=== PATIENT | female | born 1940 | race Caucasian/White ===

== ENCOUNTER 2016-09-18 20:48 | Inpatient (IN) | payer OTHER ==
[~2016-09-18] VITALS: Ht 152.4 cm; Wt 78.4 kg
--- NOTE | 2016-09-18 21:44 | DIAGNOSTIC IMAGING REPORT ---
PROCEDURE: XR CHEST 2 VIEW INDICATION: SHORTNESS OF BREATH TECHNIQUE: PA and lateral views. COMPARISON: None. FINDINGS: There are moderate to severe parenchymal changes in the right lung with mild changes at the left lung base. Heart and mediastinum are normal. Mild dextroscoliosis of the thoracic spine. Postoperative changes and fusion of the lumbar spine (partially visualized). IMPRESSION: 1. Moderate to marked parenchymal changes in the right lung with mild changes at the left lung base. Findings are compatible with pneumonia (e.g., aspiration , bacterial, Mycoplasma).
--- NOTE | 2016-09-18 22:01 | ED NURSING NOTES ---
Clinical Report - [facility] [address] [place] [address] 09/18/2016 20:50 Patient: NARAYAN NUÑEZ TRIAGE Triage time 20:58 Sep 18 2016. Acuity: LEVEL 4. Chief Complaint: (sore on right lower leg). 21:05 09/18/16. SEPSIS SCREEN: Sepsis Screen. Negative (no infection suspected/documented). BRIANNA COMA SCORE: Brianna Coma Scale: 15- eyes open spontaneously (4); best verbal response- oriented x 4 (5); best motor response- obeys commands (6). --21:05 Tracy Mcqueen R.N. 20:58 09/18/16. BP: 120/58. HR: 93. RR: 18. O2 saturation: 85%. Temp: 98.5 F. Pain level now: 01/26. --21:05 Tracy Mcqueen R.N. Weight: 69.3 kg stated. Height/Length: 60 inches Per Patient. BMI: 29.8. --20:57 Tracy Mcqueen R.Hosea. Medications Insulin. --21:03 Tracy Mcqueen R.N. Percocet Oral. --21:04 Tracy Mcqueen R.N. Medication/allergy information source: the patient. --21:05 Tracy Mcqueen RVickiN. Allergies Ibuprofen. --21:00 Tracy Mcqueen R.N. Penicillin. --21:00 Tracy Mcqueen R.N. History Arrived by private vehicle. Historian: patient. Accompanied by family. This started yesterday. ( states pain started last night in right lower leg laterally. there is a soft elevated area observed, skin is not open). She has had a cough and chills. No fever or weakness. Treatment FIRST ASSISTANT: None. SOCIAL HX: Never smoker. No alcohol use or drug use. No infectious disease exposure. ABUSE ASSESSMENT: No report of abuse. SELF HARM ASSESSMENT: A self harm assessment was performed. The patient answered "no" to the question "Have you recently felt down, depressed, or hopeless?", "Have you noticed less interest or pleasure in doing things?", "Do you have thoughts of harming or killing yourself?", "Are you here because you tried to hurt yourself?", "Have you ever tried to hurt yourself before today?", "Have you recently had thoughts about harming or killing others?" and "Do you have any dangerous items in your possession?". NUTRITIONAL RISK ASSESSMENT: The nutritional risk assessment revealed no deficiencies. FUNCTIONAL ASSESSMENT: Functional assessment: no impairments noted. LEARNING NEEDS ASSESSMENT: The learning needs assessment revealed no barriers. SKIN INTEGRITY ASSESSMENT: Skin integrity risk assessment completed. No skin integrity risk identified. --21:05 Tracy Mcqueen R.N. PROBLEMS: Arthritis. Chronic Back Pain. Diabetes Mellitus. --21:01 Tracy Mcqueen R.N. ADDITIONAL SURGERIES: Back Surgery. Cholecystectomy. --21:01 Tracy Mcqueen R.N. Interventions ID band on patient. --21:05 Tracy Mcqueen R.N. PHYSICAL ASSESSMENT 21:09/18/16. To room via wheelchair. GENERAL / NEURO / PSYCH: Alert. Oriented X 4. Appears in no acute distress. HEENT: Pupils equal, round and reactive to light. No facial asymmetry noted. Mucous membranes are pink. RESPIRATORY: Decreased breath sounds. Crackles present. CVS: Capillary refill less than 2 seconds. Pulses within normal limits. EXTREMITIES: Bilateral 1+ pitting edema of the lower extremities involving both lower legs. SKIN: Skin intact. Skin is warm and dry. Normal skin turgor. --21:26 Tracy Mcqueen R.N. NURSING PROGRESS NOTES 21:06 09/18/16. The initial plan of care for this patient includes an assessment with efforts to address the presence of pain; impairment of the respiratory and integumentary system. This plan of care was discussed with the patient. Oxygen administered at 2 liters. Patient gowned. Reassurance given. Patient identifiers checked. Call light placed in reach. Side rails up x 2. Bed placed in lowest position. Brakes of bed on. Patient ready for evaluation. --21:06 Tracy Mcqueen R.N. 21:07 09/18/16. --21:07 Tracy Mcqueen R.N. 21:06 09/18/16. O2 saturation: 94% on nasal cannula at 2 liters/minute. --21:07 Tracy Mcqueen R.N. 21:20 09/18/2016 Site #1 started via IV in the right antecubital space with an 20g angiocath, with aseptic technique and good blood return; one attempt. Blood drawn: rainbow set. Labeled in the presence of the patient and sent to the lab. Saline lock flushed with 10 mL saline. --21:27 Tracy Mcqueen R.N. 21:23 09/18/16. Patient transported to radiology by stretcher with O2. --21:27 Tracy Mcqueen R.N. 21:33 09/18/2016 NITROGLYCERIN PASTE Topical Paste 1.5 inch. Applied to the right upper arm. Allergies verified and confirmed 5 rights. --21:38 Tracy Mcqueen R.N. EKG time: (2139). EKG was ordered, performed by a tech and shown to the ED physician. --21:42 Tolu Mensah, ER Soda Clerk 21:46 09/18/16. BP: 118/53. HR: 92. RR: 20. O2 saturation: 94%. Pain level now 5/10. --21:46 Tracy Mcqueen R.N. 21:46 09/18/16. Cardiac rhythm: normal sinus rhythm. The patient is calm and resting quietly. --21:46 Tracy Mcqueen R.N. 22:10 09/18/2016 Lasix IVP 20 mg given over 1 minute(s) via site #1. Allergies verified and confirmed 5 rights. IV patency established. IV site checked: no pain, redness, or swelling. IV flushed thoroughly pre- and post-medication administration. IVP given by RN. --22:15 Tracy Mcqueen R.N. 22:15 09/18/2016 Started 500 mg of Azithromycin IVPB in bag #1 250 mL; at 250 mL/hr over 1 hour(s) via site #1 via IV pump. Allergies verified and confirmed 5 rights. IV patency established. IV site checked: no pain, redness, or swelling. IV flushed thoroughly pre- and post-medication administration. --22:16 Tracy Mcqueen R.N. 22:39 09/18/2016 Lovenox (Enoxaparin Sodium) Subcutaneous 60 mg given. Given in the right abdomen. Allergies verified and confirmed 5 rights. --22:39 Tracy Mcqueen R.N. 22:40 09/18/2016 Hydrocodone-APAP (Hydrocodone-Acetaminophen) PO 5/325 mg Tablets 1 tab given. Allergies verified, confirmed 5 rights and sedative warning given to the patient. --22:40 Tracy Mcqueen R.N. 22:40 09/18/2016 Zofran (Ondansetron HCl) IVP 4 mg given over 1 minute(s) via site #1. Allergies verified and confirmed 5 rights. IV patency established. IV site checked: no pain, redness, or swelling. IV flushed thoroughly pre- and post-medication administration. IVP given by RN. --22:40 Tracy Mcqueen R.N. 22:40 09/18/2016 Lovenox Subcutaneous Response: (dosing verified by Marciano Craft RN). --22:50 Tracy Mcqueen R.N. 23:15 09/18/2016 Azithromycin IVPB Discontinued: completed. Total amount infused: 250 mL. IV patency established. IV site checked: no pain, redness, or swelling. IV flushed thoroughly. --23:26 Tracy Mcqueen R.N. 23:20 09/18/16. Patient transported to NM by stretcher. --23:25 Tracy Mcqueen R.N. 23:48 09/18/2016 Started 2 gm of Ceftriaxone IVPB in bag #1 50 mL; at 100 mL/hr over 30 minute(s) via site #1 --23:48 Tracy Mcqueen R.N. 23:49 09/18/16. Cardiac rhythm: normal sinus rhythm. The patient is calm and resting quietly. ( Ultrasound at bedside). --23:49 Tracy Mcqueen, R.N. 23:49 09/18/16. BP: 117/49. HR: 98. RR: 18. O2 saturation: 94%. Temp: 98.3 F. Pain level now 5/10. --23:49 Tracy Mcqueen, R.N. Intake & Output 22:00 09/18/16. Urine, with return of 250 mL urine. --22:42 Tracy Mcqueen R.N. 22:44 09/18/16. Urine, with return of 200 mL urine. --22:44 Tracy Mcqueen R.N. DISPOSITION / DISCHARGE 22:45 09/18/16. Cardiac rhythm: normal sinus rhythm. --22:45 Tracy Mcqueen R.N. 22:45 09/18/16. BP: 118/63. HR: 97. RR: 22. O2 saturation: 93%. Pain level now 5/10. --22:45 RavierTracy herzog, R.N. Condition at departure: improved and stable. The goals identified in the patient's plan of care were met. Admitted to Acute Care. Report was given to a nurse via a phone call. Report included patient's care, treatment, medications, reviewed medication reconcilliation, and condition (including any recent changes or anticipated changes). All questions were answered. (to LUIS FELIPE Nieves). Bed requested (303). --23:34 Tracy Mcqueen R.N. 00:04 09/19/2016 Site #[address] upon admission; patent. --00:04 Tracy Mcqueen R.N. 00:04 09/19/2016 Ceftriaxone IVPB Continued: at the rate of 100 mL/hr. 25 mL remaining. IV patency established. IV site checked: no pain, redness, or swelling. IV flushed thoroughly. --00:04 Tracy Mcqueen R.N. Departure time: 00:Sep 19 2016. Transported via stretcher with O2. --00:05 Tracy Mcqueen R.N. Locked/Released at 09/19/2016 0:08 by Tracy Mcqueen R.N.
--- NOTE | 2016-09-18 22:01 | ED CLINICAL REPORT ---
Clinical Report - Physicians/Mid Levels [facility] [address] [place] [address] 09/18/2016 20:50 Patient: NARAYAN NUÑEZ Time Seen: 20:56. Arrived- By private vehicle. Historian- patient. HISTORY OF PRESENT ILLNESS Chief Complaint: TENDER AREA and (swelling in both legs). This started yesterday and is still present. It was gradual in onset and has been constant. It is described as mildly painful (right lower leg). It has been located on the right lower extremity. No cause has been identified. (She is noting increased swelling of both lower extremities). Similar symptoms previously: None. Recent medical care: Not recently seen/assessed. REVIEW OF SYSTEMS The patient has had fever, chills and joint pain. No sore throat, hoarseness, headache, chest pain or abdominal pain. No difficulty with urination or vomiting. She has had a mild nonproductive cough. No blood tinged sputum or frankly bloody sputum. She has had mild difficulty breathing at rest . The patient has also had orthopnea. All systems otherwise negative, except as recorded above. PAST HISTORY See nurses notes. Diabetes mellitus. PCP: [facility] clinic. Arthritis. Chronic back pain. Surgeries: Back surgery. Cholecystectomy. Medications: Percocet Oral. Insulin. Allergies: Ibuprofen. Penicillin. SOCIAL HISTORY Never smoker. No alcohol use or drug use. Residence: [facility]. ADDITIONAL NOTES The nursing notes have been reviewed. PHYSICAL EXAM Vital Signs: 09/18/2016 20:58 BP: 120/58. HR: 93. RR: 18. O2 saturation: 85%. Temp: 98.5 F. Pain level now: 8/10. Appearance: Alert. Oriented X3. Patient in mild distress. Eyes: Conjunctivae and eyelids normal. ENT: Pharynx normal. No nasal discharge, pharyngeal erythema or swelling or tonsillar exudate. Neck: Neck supple. CVS: Normal heart rate and rhythm. Heart sounds normal. Respiratory: No respiratory distress. Wheezing present. Rales present. Abdomen: Nontender. No organomegaly. Skin: Skin warm and dry. Normal skin color. Normal skin turgor. No erythema. No tender indurated area. No cellulitis. No abscess. Extremities: Bilateral 3+ edema of the lower extremities. No calf tenderness. (small area of increased tissue fluid accumulation right anterior,inferior leg - no erythema, no lymphangitis, no increased warmth). Neuro: Oriented X 3. No motor deficit. No sensory deficit. LABS, X-RAYS, AND EKG EKG: EKG time: (21:40). Normal sinus rhythm. Rate: 90. Normal P waves. Normal PALAK. Normal QRS complex. Normal axis. Normal ST and T waves. The study has been interpreted contemporaneously by me. The EKG appears to be a good tracing. Rhythm Strip #1: Normal sinus rhythm. Regular rhythm. Narrow QRS complexes. No ectopy. Chest X-ray: (FINDINGS: There are moderate to severe parenchymal changes in the right lung with mild changes at the left lung base. Heart and mediastinum are normal. Mild dextroscoliosis of the thoracic spine. Postoperative changes and fusion of the lumbar spine (partially visualized). IMPRESSION: 1. Moderate to marked parenchymal changes in the right lung with mild changes at the left lung base. Findings are compatible with pneumonia (e.g., aspiration, bacterial, Mycoplasma).). Views: PA and lateral. Technique: good. The X-rays were interpreted contemporaneously by me. The X-rays were discussed with the radiologist (via PACS note). CTA Pulmonary Arteries: No evidence of pulmonary embolism. IMPRESSION: 1. Moderate to severe alveolar changes (right greater than left) with mild mediastinal adenopathy. Findings are compatible with a pneumonic process. Consider infectious etiologies (e.g., bacterial, aspiration, Mycoplasma, viral). Alternatively, allergic pneumonitis or idiopathic causes (e.g., alveolar proteinosis, atypical sarcoid) should also be considered. Neoplastic causes (e.g., alveolar cell carcinoma) might also be considered. 2. Mild mediastinal adenopathy. 3. Small bilateral pleural effusions. Consider low protein state or occult heart failure. 4. No evidence of pulmonary embolus. The CTA was performed with contrast. The study was independently viewed by me and interpreted by the radiologist. The study was discussed with the radiologist (via PACS note). Lower Extremity Sonography: Negative exam. Negative study. Indication for study: extremity pain and swelling. The exam was performed by a battery service technician. The study was independently viewed by me, interpreted by the radiologist and discussed with the radiologist. IMPRESSION: 1. Negative venous ultrasound of the bilateral lower extremities. Laboratory Tests: UA-Culture if indicated: (EVARISTO: 09/18/2016 22:00) ( MsgRcvd 09/18/2016 22:07) Final results Test Result Flag Units (Reference) URINE COLOR YELLOW URINE APPEARANCE CLEAR URINE GLUCOSE 1+ (NEGATIVE) URINE BILIRUBIN NEGATIVE (NEGATIVE) URINE KETONE NEGATIVE (NEGATIVE) URINE SPECIFIC GRAVITY <= 1.005 L (1.010-1.030) URINE PH 6.0 (5.0-8.0) URINE PROTEIN NEGATIVE (NEGATIVE) URINE UROBILINOGEN 1.0 EU/dL (0.2-1.0) URINE NITRITE NEGATIVE (NEGATIVE) URINE BLOOD NEGATIVE (NEGATIVE) URINE LEUK ESTERASE NEGATIVE (NEGATIVE) URINE RBC 0-1 rbc/hpf (0-1) URINE WBC 0-1 wbc/hpf (0-1) URINE EPITHELIAL CELLS 0-1 EPI/hpf (0-5) URINE BACTERIA NONE SEEN (NONE SEEN) URINE COMMENT CULT NOT INDICATED URINE CULTURES ARE SET-UP BASED ON THE FOLLOWING CRITERIA:POSITIVE NITRITEPOSITIVE LEUKOCYTE ESTERASEGREATER THAN 10 WHITE BLOOD CELLSMODERATE (2+) OR GREATER BACTERIA CBC w Diff: (EVARISTO: 09/18/2016 21:20) ( MsgRcvd 09/18/2016 21:33) Final results Test Result Flag Units (Reference) WHITE BLOOD COUNT 13.7 H K/uL (4.5-11.5) RED BLOOD COUNT 4.14 M/uL (4.00-5.20) HEMOGLOBIN 11.9 L gm/dL (12.0-16.0) HEMATOCRIT 35.5 L % (36.0-46.0) MEAN CELL VOLUME 86 fL (80-100) MEAN CORPUSCULAR HGB 29 pg (26-34) MEAN CORPUSCULAR HGB CONC 34 g/dL (31-37) RED CELL DISTRIBUTION WIDTH 13.6 % (11.6-14.8) PLATELET COUNT 267 K/uL (150-400) NEUTROPHIL % 73.6 % (50-75) LYMPH % 15.8 L % (25-40) MONO % 8.1 % (3-14) EOSINOPHIL % 1.6 % (0-4) BASOPHIL % 0.9 % (0-2) [id number]: (EVARISTO: 09/18/2016 21:20) ( MsgRcvd 09/18/2016 21:40) Final results Test Result Flag Units (Reference) D-DIMER QUANTITATIVE 2.38 H ug/mLFEU (0.27-0.52) The primary value of this quantitative assay relates toits negative predictive value (i.e. exclusion) of pulmonaryembolism/deep vein thrombosis/DIC.Elevated levels of d-dimer may also occur with:, age, cancer, inflammation, liver disease,post-op, infection, hematoma, coronary disease, peripheralarteriopathy, bleeding disorders and thrombolytic treatment.Results should be correlated with other clinical andradiological data.Testing Methodology: Latex Immunoassay [id number]: (EVARISTO: 09/18/2016 21:20) ( MsgRcvd 09/18/2016 22:43) Final results Test Result Flag Units (Reference) PROCALCITONIN <0.5 ng/mL (0-0.5) PCT Concentration: Interpretation : Risk/option for action PCT <=0.5 ng/mL : Systemic : Low risk forinfection(sepsis): progression to severeis not likely. : systemic infection.Local bacterial : CAUTION-PCT levelsinfection is : below 0.5 ng/mL do notpossible. : exclude an infection,because localizedinfections (withoutsystemic signs) may beassociated with suchlow levels. If PCT ismeasured very earlyafter a bacterialchallenge (usually <6hours), these valuesmay still be low. Inthis case PCT shouldbe re-assessed 6-24hours later. PCT >0.5 and : Systemic infection: Moderate risk for<= 2 ng/mL : (sepsis) is : progression to severepossible, but : systemic infection.other conditions : The patient should beare known to : closely monitoredelevate PCT. : both clinically andby re-assessing PCTwithin 6-24 hours. PCT > 2 ng/mL : Systemic infection: High risk for(sepsis) is likely: progression to severeunless other : systemic infection.causes are known. : PCT >= 10 ng/mL : Important systemic: High likelihood ofinflammatory : severe sepsis orresponse, almost : septic shock.exclusively due to:severe bacterial :sepsis or septic :shock. : BNP: (EVARISTO: 09/18/2016 21:20) ( MsgRcvd 09/18/2016 21:48) Final results Test Result Flag Units (Reference) B-TYPE NATRIURETIC PEPTIDE 962 H pg/ml (5-100) CHEM 13 PANEL: (EVARISTO: 09/18/2016 21:20) ( MsgRcvd 09/18/2016 21:52) Final results Test Result Flag Units (Reference) GLUCOSE 208 H mg/dL (70-110) BUN 15 mg/dL (7-18) CREATININE 0.8 mg/dL (0.6-1.3) Estimated GFR >60 mL/min Estimated GFR- >60 mL/min Note: Persistent reduction over 3 months in eGFR<60 mL/min/1.73 m2 defines CKD. Patients with eGFR values>=60 mL/min/1.73 m2 may also have CKD if evidence ofpersistent proteinuria. Additional information may be foundat www.kidney.org. SODIUM 136 mmol/L (136-145) POTASSIUM 4.1 mmol/L (3.5-5.1) CHLORIDE 101 mmol/L (98-107) CARBON DIOXIDE 27 mmol/L (21-32) CALCIUM 8.2 L mg/dL (8.5-10.1) TOTAL PROTEIN 6.9 g/dL (6.4-8.2) ALBUMIN 2.7 L g/dL (3.3-5.0) BILIRUBIN, TOTAL 0.5 mg/dL (0.0-1.0) ALKALINE PHOSPHATASE 149 H U/L (46-116) AST (SGOT) 29 U/L (15-37) ALT (SGPT) 60 U/L (12-78) MAGNESIUM 2.0 mg/dL (1.8-2.4) AMYLASE 42 U/L (25-115) CPK 92 U/L (24-260) TROPONIN I <0.05 ng/mL (0.00-1.5) TROPONIN REFERENCE RANGE:<0.1 NEGATIVE0.1-1.5 INDETERMINANT>1.5 POSITIVE . Microbiology: Blood culture x2 ordered. Pulse Oximetry: 09/18/2016 20:58 O2 saturation: 85%. (FIO2 - room air). Interpretation: hypoxemia. PROGRESS AND PROCEDURES Course of Care: Nitroglycerin 1.5 inches paste inches. Hydrocodone/APAP 5 mg PO given. Normal Saline 500 mL IVPB given. Azithromycin 500mg IVPB given. Zofran 4 mg IVP given. Lovenox 60 mg subQ given. Ceftriaxone 2 gm IVP given. Pt has O2 requirement with asymmetric alveolar filling pattern on CXR - c/w CHF and pneumonia. Pt with elevated serum WBC and subjective fever earlier. Discussed case with hospitalist, (Elenauma call placed 22:02 call returned 22:04). Reviewed test results. Agreed upon treatment plan. Health care provider will see patient in hospital. Patient/family counseled. Old ED records reviewed. Transition orders written. Disposition: Admitted to Acute Care. Condition: stable and improved. CLINICAL IMPRESSION Acute moderate systolic, congestive heart failure. Bacterial, Mycoplasma and atypical pneumonia with hypoxemia. Vital signs recorded and reviewed; empiric antibiotics given in the ED. Chronic, moderately well controlled type 2 diabetes with hyperglycemia. No coma. Abnormal liver function test: alkaline phosphatase. Moderate leukocytosis. No lymphocytosis. Hypoxia. D-dimer elevation likely due to infection and age. (Electronically signed by Awais Khan DO 09/19/2016 2:11)
--- NOTE | 2016-09-18 22:01 | ED ORDER SUMMARY ---
..... Patient: NARAYAN NUÑEZ OrderSheet [facility] VisitID: [id number] [address] [place] [address] 76y, F Registration Date/Time: 09/18/2016 ORDER SHEET Weight: 69.3 kg (stated) Allergies: Ibuprofen, Penicillin GENERAL ORDERS: Chest 2V Urgent (21:09/18/2016 PHutchinson DO) (21:29 Lupillo) Suction Operator (Continuous) (21:09/18/2016 PHutchinson DO) (21:27 EInderbitzen R.N.) UA-Culture if indicated Urgent (:09/18/2016 PHutchinson DO) (Ack 21:33 SRedmond) (22:20 EInderbitzen R.N.) Cardiac Panel Stat (:09/18/2016 PHutchinson DO) (21:27 EInderbitzen R.N.) BNP Urgent (:09/18/2016 PHutchinson DO) (21:27 EInderbitzen R.N.) D-Dimer Urgent (21:09/18/2016 PHutchinson DO) (21:27 EInderbitzen R.N.) Amylase Urgent (:09/18/2016 PHutchinson DO) (21:27 EInderbitzen R.N.) Oxygen (2 L/min) (NC) (:09/18/2016 PHutchinson DO) (21:27 EInderbitzen R.N.) Pulse oximeter (:09/18/2016 PHutchinson DO) (21:27 EInderbitzen R.N.) EKG - ER Stat (:09/18/2016 PHutchinson DO) (Ack 21:33 SRedmond) (21:41 Padmini ER Route Driver Salesperson) Vitals (:09/18/2016 PHutchinson DO) (21:27 EInderbitzen R.N.) POC Glucose (21:09/18/2016 PHutchinson DO) (21:27 EInderbitzen R.N.) US Venous Bilat (elevated d-dimer) Urgent (21:51 09/18/2016 [facility]) (Ack 21:55 SRedmond) (23:48 EInderbitzen R.N.) Blood Culture (No) (N/A) Urgent (21:55 09/18/2016 [facility]) (Ack 21:56 SRedmond) (22:27 EInderbitzen R.N.) Call (Place call to): (Yruma) (22:02 09/18/2016 [facility]) (22:03 SRedmond) PCT (Procalcitonin) Urgent (22:06 09/18/2016 [facility]) (Ack 22:11 SRedmond) (22:27 EInderbitzen R.N.) MEDICATION ORDERS: NitroGLYCERIN Paste Topical 1.5 in. (NOW, to CW) (21:16 09/18/2016 [facility]) (21:38 EInderbitzen R.N.) Lovenox Subcut 60 mg (HIGH ALERT MEDICATION, NOW) (22:24 09/18/2016 [facility]) (Ack 22:33 EInderbitzen R.N.) (22:39 EInderbitzen R.N.) Hydrocodone-APAP PO 5/325 mg (NOW, HIGH ALERT MEDICATION) (22:26 09/18/2016 [facility]) (Ack 22:33 EInderbitzen R.N.) (22:40 EInderbitzen R.N.) IV FLUIDS: IV Saline Lock (21:17 09/18/2016 [facility]) (21:28 EInderbitzen R.N.) Ceftriaxone IV 2 gm/50mL (NOW) (22:01 09/18/2016 [facility]) (Ack 22:22 EInderbitzen R.N.) (23:48 EInderbitzen R.N.) Azithromycin IV 500 mg/250 mL (after blood cultures) (22:01 09/18/2016 [facility]) (22:16 EInderbitzen R.N.) Lasix IV 20 mg (NOW) (22:04 09/18/2016 [facility]) (22:15 EInderbitzen R.N.) Zofran IV 4 mg (NOW) (22:27 09/18/2016 Presley MCPHERSON) (Ack 22:33 Suzy Lopes) (22:40 Suzy Lopes) ORDER SHEET NOTES: [Electronically signed by Tracy Mcqueen R.N. (00:08 09/19/2016)] [Electronically signed by Awais Khan DO (02:11 09/19/2016)] [Electronically locked/signed by Tracy Mcqueen R.N. (00:08 09/19/2016)]
--- NOTE | 2016-09-18 22:01 | ED ORDER SUMMARY ---
..... Patient: NARAYAN NUÑEZ OrderSheet [facility] VisitID: [id number] [address] [place] [address] 76y, F Registration Date/Time: 09/18/2016 ORDER SHEET Weight: 69.3 kg (stated) Allergies: Ibuprofen, Penicillin GENERAL ORDERS: Chest 2V Urgent (21:09/18/2016 PHutchinson DO) (21:29 Lupillo) Director Of [employer] (Continuous) (21:09/18/2016 PHutchinson DO) (21:27 EInderbitzen R.N.) UA-Culture if indicated Urgent (:09/18/2016 PHutchinson DO) (Ack 21:33 SRedmond) (22:20 EInderbitzen R.N.) Cardiac Panel Stat (:09/18/2016 PHutchinson DO) (21:27 EInderbitzen R.N.) BNP Urgent (:09/18/2016 PHutchinson DO) (21:27 EInderbitzen R.N.) D-Dimer Urgent (21:09/18/2016 PHutchinson DO) (21:27 EInderbitzen R.N.) Amylase Urgent (:09/18/2016 PHutchinson DO) (21:27 EInderbitzen R.N.) Oxygen (2 L/min) (NC) (:09/18/2016 PHutchinson DO) (21:27 EInderbitzen R.N.) Pulse oximeter (:09/18/2016 PHutchinson DO) (21:27 EInderbitzen R.N.) EKG - ER Stat (:09/18/2016 PHutchinson DO) (Ack 21:33 SRedmond) (21:41 Padmini ER Farm Supervisor) Vitals (:09/18/2016 PHutchinson DO) (21:27 EInderbitzen R.N.) POC Glucose (21:09/18/2016 PHutchinson DO) (21:27 EInderbitzen R.N.) US Venous Bilat (elevated d-dimer) Urgent (21:51 09/18/2016 [facility]) (Ack 21:55 SRedmond) (23:48 EInderbitzen R.N.) Blood Culture (No) (N/A) Urgent (21:55 09/18/2016 [facility]) (Ack 21:56 SRedmond) (22:27 EInderbitzen R.N.) Call (Place call to): ([place]) (22:02 09/18/2016 [facility]) (22:03 SRedmond) PCT (Procalcitonin) Urgent (22:06 09/18/2016 [facility]) (Ack 22:11 SRedmond) (22:27 EInderbitzen R.N.) MEDICATION ORDERS: NitroGLYCERIN Paste Topical 1.5 in. (NOW, to CW) (21:16 09/18/2016 [facility]) (21:38 EInderbitzen R.N.) Lovenox Subcut 60 mg (HIGH ALERT MEDICATION, NOW) (22:24 09/18/2016 [facility]) (Ack 22:33 EInderbitzen R.N.) (22:39 EInderbitzen R.N.) Hydrocodone-APAP PO 5/325 mg (NOW, HIGH ALERT MEDICATION) (22:26 09/18/2016 [facility]) (Ack 22:33 EInderbitzen R.N.) (22:40 EInderbitzen R.N.) IV FLUIDS: IV Saline Lock (21:17 09/18/2016 [facility]) (21:28 EInderbitzen R.N.) Ceftriaxone IV 2 gm/50mL (NOW) (22:01 09/18/2016 [facility]) (Ack 22:22 EInderbitzen R.N.) (23:48 EInderbitzen R.N.) Azithromycin IV 500 mg/250 mL (after blood cultures) (22:01 09/18/2016 [facility]) (22:16 EInderbitzen R.N.) Lasix IV 20 mg (NOW) (22:04 09/18/2016 [facility]) (22:15 EInderbitzen R.N.) Zofran IV 4 mg (NOW) (22:27 09/18/2016 Presley MCPHERSON) (Ack 22:33 Suzy Lopes) (22:40 Suzy Lopes) ORDER SHEET NOTES: [Electronically signed by Tracy Mcqueen R.N. (00:08 09/19/2016)] [Electronically signed by Awais Khan DO (02:11 09/19/2016)] [Electronically locked/signed by Tracy Mcqueen R.N. (00:08 09/19/2016)]
[2016-09-19] VITALS (7 sets, daily range): BP systolic 107–123; BP diastolic 43–69
--- NOTE | 2016-09-19 00:02 | DIAGNOSTIC IMAGING REPORT ---
PROCEDURE: CTA THORAX WITH CONTRAST INDICATION: Elevated d-dimer. Possible CHF. TECHNIQUE: 80 ml of Isovue 370 was injected intravenously and axial images were obtained of the entire thorax with 3D sagittal and coronal MIP reconstructions. COMPARISON: Comparison is made to chest x-ray earlier today (09/18/2016). FINDINGS: There is severe alveolar changes in the right middle lobe and right upper lung with moderate changes at the right lung base. There are mild to moderate alveolar changes in the left mid lower lung. There are small bilateral pleural effusions, right greater than left). Findings suggest mild mediastinal adenopathy (pretracheal, subcarinal). Pulmonary vessels are normal and there is no evidence of pulmonary embolus. Heart is of normal size. There are moderate degenerative changes of the thoracic spine. There are dystrophic calcifications in the retroareolar left breast. Portions of the upper abdomen are seen. Status post cholecystectomy. Adrenal glands are normal. IMPRESSION: 1. Moderate to severe alveolar changes (right greater than left) with mild mediastinal adenopathy. Findings are compatible with a pneumonic process. Consider infectious etiologies (e.g., bacterial, aspiration, Mycoplasma, viral). Alternatively, allergic pneumonitis or idiopathic causes (e.g., alveolar proteinosis, atypical sarcoid) should also be considered. Neoplastic causes (e.g., alveolar cell carcinoma) might also be considered. 2. Mild mediastinal adenopathy. 3. Small bilateral pleural effusions. Consider low protein state or occult heart failure. 4. No evidence of pulmonary embolus. 5. Findings discussed with Dr. Menjivar. All CT scans at this facility use dose modulation, iterative reconstruction, and/or weight-based dosing when appropriate to reduce radiation dose to as low as reasonably achievable.
--- NOTE | 2016-09-19 00:31 | DIAGNOSTIC IMAGING REPORT ---
PROCEDURE: US VENOUS - BILATERAL EXT INDICATION: Lower extremity swelling. Elevated D-dimer. TECHNIQUE: Color Doppler duplex imaging of the deep and superficial venous system without and with compression. COMPARISON: None. FINDINGS: RIGHT LOWER EXTREMITY: Deep and superficial venous system of the right lower extremity is within normal limits. There is no evidence of deep vein thrombosis or superficial thrombophlebitis. LEFT LOWER EXTREMITY: Deep and superficial venous system of the left lower extremity is within normal limits. There is no evidence of deep vein thrombosis or superficial thrombophlebitis. IMPRESSION: 1. Negative venous ultrasound of the bilateral lower extremities.
--- NOTE | 2016-09-19 00:44 | HISTORY AND PHYSICAL ---
ADMITTED: 09/18/2016 HISTORY OF PRESENT ILLNESS: The patient is a 76-year-old female who was seen in the ED because of a painful, tender spot in her right leg. She reported that her legs have been more swollen than usual. Swelling involves both her legs. She was also reported to have some fever and chills yesterday and a dry cough. She reports shortness of breath on exertion such as going to the bathroom. She denies having any chest pain or palpitations. She denies having any hemoptysis. Denies having any trouble breathing when she lies down. She was seen in the emergency department where she was found to have x-ray findings that were suspicious for pneumonia. She did have a white count that was slightly elevated at 13. She was also found to have an elevated BNP of 962. MEDICAL/SURGICAL HISTORY: Past medical history is pertinent for diabetes, on insulin; history of hypertension; history of chronic back pain; and history of degenerative arthritis. No known history of heart disease. No history of prior DVT or PE. No history of lung disease. Past surgeries include back surgery, cholecystectomy, hysterectomy, and appendectomy. MEDICATIONS: 1. Lantus insulin 20 units twice daily. 2. Lisinopril 10 mg daily. 3. Aspirin 81 mg daily. 4. Percocet 1 p.o. q.6 hours p.r.n. pain. 5. Metformin 500 twice daily. rest of meds unlknown to patient--- daughter to bring med s in am ALLERGIES: SHE IS ALLERGIC TO: 1. IBUPROFEN. 2. PENICILLIN: 3. SHE IS ALSO SENSITIVE TO VICODIN. SOCIAL HISTORY: She does not smoke. No alcohol use. No recreational drug use. She lives with her daughter. CODE STATUS IS DNR. FAMILY HISTORY: Includes a history of blood clot in her father. REVIEW OF SYSTEMS: She denies having any chest pain. No palpitations. No pleuritic pains. No focal weakness or numbness. She reports a weight gain of about 20 pounds since she last weighed herself. She also reports some intermittent abdominal discomfort and acid reflux symptoms. No urinary symptoms. She has bilateral leg edema. No rash. The rest of the review of systems otherwise unremarkable. PHYSICAL EXAMINATION: GENERAL: Shows a well-developed, well-nourished, pleasant female, who does not appear to be in any cardiopulmonary distress. VITAL SIGNS: Blood pressure is 120/58, heart rate 93, respirations 18, O2 saturations 85% to 90% on room air, temperature is 98.5. Weight is 69.3 kg. Height is 60 inches. BMI is 29.8. HEENT: She is normocephalic with pink conjunctivae. Anicteric. Pupils are reactive. Moist oral mucosa. NECK: She has some mild JVD. No bruits. LUNGS: Show bibasilar crackles. No wheezes, no use of accessory muscles of respiration. CARDIOVASCULAR: Regular rate and rhythm. S1, S2 normal. No S3, no S4. No gallops , murmurs, or rubs. [place] beat is not displaced. ABDOMEN: Soft, nontender, normoactive bowel sounds. Well-healed surgical scar. No guarding. EXTREMITIES: Bilateral edema about +2 to 3. Negative Homans sign. Negative tenderness. Full peripheral pulses. NEUROLOGIC: No lateralizing signs. LAB/IMAGING: Her EKG shows normal sinus rhythm. Chest x-ray shows increased pulmonary vascularity. bilateral assymetric alveolar infiltrates, chf with superimpsoed pneumonia Her labs show sodium of 136, potassium 4.1, chloride 101, CO2 27, BUN of 15, creatinine 0.8, glucose 208. Alkaline phosphatase 149, AST 29, ALT 60, magnesium 2, amylase 42. CK and troponins are normal. UA shows specific gravity 1.005, no signs of infection. Hemoglobin is 11.9, hematocrit 35.5, MCV of 86, WBC of 13.7, platelets 267, neutrophils 73, lymphocytes 15.8. D-dimer is 2.38. IMPRESSION: 1. Acute congestive heart failure. 2. Probable pneumonia. 3. Diabetes mellitus type 2. 4. Elevated alkaline phosphatase. 5. Chronic back pain. PLAN: We will admit the patient to telemetry. We will place on nitroglycerin paste half an inch q.6 h. and Lasix 20 IV b.i.d. We will recheck CK and troponin in the morning. We will also order an echocardiogram in the morning. The patient was given Rocephin and Zithromax in the emergency department for probable pneumonia. Her procalcitonin level is normal, but will repeat a procalcitonin level in the morning. In the meantime, we will continue Rocephin and Zithromax. We will also order a CTA of the chest. For her diabetes, we will monitor Accu-Cheks before meals and at bedtime, cover her with sliding scale insulin, and continue Lantus 20 units twice daily. We will hold metformin as the patient is going to get intravenous contrast. We will resume lisinopril 10 mg daily. Will resume her Lantus insulin. Also resume her aspirin. We will place her on Protonix for stress gastritis prophylaxis and subcutaneous Lovenox for deep venous thrombosis prophylaxis. The plan of care was discussed with the patient and her daughter. They agreed and verbalized understanding.
[2016-09-19] MEDS ORDERED: PERCOCET1 TA1 PO ×2 (01:11→10:47)
--- NOTE | 2016-09-19 02:12 | ED MAR SUMMARY ---
..... Medication Administration Record [facility] [address] [place] [address] Patient: NARAYAN NUÑEZ Visit ID: [id number] 76y, F Weight: 69.3 kg Height/Length: 60 in BMI: 29.8 ALLERGIES: Penicillin, Ibuprofen Given 21:33 09/18/2016 Tracy Mcqueen R.N. Medication Administered: NITROGLYCERIN PASTE [TOPICAL], Dose: 1.5 in. Paste Topical. Medication Ordered: NitroGLYCERIN Paste Topical 1.5 in. (NOW, to CW). Given 22:10 09/18/2016 Tracy Mcqueen R.N. Medication Administered: LASIX [IVP], Dose: 20 mg IVP over 1 minute(s), Site: #1 right AC. Medication Ordered: Lasix IV 20 mg (NOW). Start 22:15 09/18/2016 Tracy Mcqueen R.N., Stop 23:15 09/18/2016 Tracy Mcqueen R.N. Medication Administered: AZITHROMYCIN [IVPB], Dose: 500 mg IVPB over 1 hour(s), Rate: 250 mL/hr, Dispensed: 250 mL bag, Site: #1 right AC. Medication Ordered: Azithromycin IV 500 mg/250 mL (after blood cultures). Given 22:39 09/18/2016 Tracy Mcqueen R.N. Medication Administered: LOVENOX [SUBCUTANEOUS] (ENOXAPARIN SODIUM), Dose: 60 mg Subcutaneous. Medication Ordered: Lovenox Subcut 60 mg (HIGH ALERT MEDICATION, NOW). Given 22:40 09/18/2016 Tracy Mcqueen R.N. Medication Administered: HYDROCODONE-APAP [PO] (HYDROCODONE-ACETAMINOPHEN), Dose: 1 tab 5/325 mg Tablets PO. Medication Ordered: Hydrocodone-APAP PO 5/325 mg (NOW, HIGH ALERT MEDICATION). Given 22:40 09/18/2016 Tracy Mcqueen R.N. Medication Administered: ZOFRAN [IVP] (ONDANSETRON HCL), Dose: 4 mg IVP over 1 minute(s), Site: #1 right AC. Medication Ordered: Zofran IV 4 mg (NOW). Start 23:48 09/18/2016 Tracy Mcqueen R.N., Continued Upon Disposition 00:04 09/19/2016 Tracy Mcqueen R.N. Medication Administered: CEFTRIAXONE [IVPB], Dose: 2 gm IVPB over 30 minute(s), Rate: 100 mL/hr, Dispensed: 50 mL bag, Site: #1 right AC. Medication Ordered: Ceftriaxone IV 2 gm/50mL (NOW).
--- NOTE | 2016-09-19 02:12 | ED DISCHARGE INSTRUCTIONS ---
Patient: NARAYAN NUÑEZ General Instructions [facility] VisitID: [id number] [address] [place] [address] 76y, F Registration Date/Time: 09/18/2016 Acute moderate systolic, congestive heart failure. Bacterial, Mycoplasma and atypical pneumonia with hypoxemia. Vital signs recorded and reviewed; empiric antibiotics given in the ED. Chronic, moderately well controlled type 2 diabetes with hyperglycemia. No coma. Abnormal liver function test: alkaline phosphatase. Moderate leukocytosis. No lymphocytosis. Hypoxia. D-dimer elevation likely due to infection and age. (Electronically signed by Awais Khan DO 09/19/2016 2:11)
--- NOTE | 2016-09-19 02:12 | ED MAR SUMMARY ---
..... Medication Administration Record [facility] [address] [place] [address] Patient: NARAYAN NUÑEZ Visit ID: [id number] 76y, F Weight: 69.3 kg Height/Length: 60 in BMI: 29.8 ALLERGIES: Penicillin, Ibuprofen Given 21:33 09/18/2016 Tracy Mcqueen R.N. Medication Administered: NITROGLYCERIN PASTE [TOPICAL], Dose: 1.5 in. Paste Topical. Medication Ordered: NitroGLYCERIN Paste Topical 1.5 in. (NOW, to CW). Given 22:10 09/18/2016 Tracy Mcqueen R.N. Medication Administered: LASIX [IVP], Dose: 20 mg IVP over 1 minute(s), Site: #1 right AC. Medication Ordered: Lasix IV 20 mg (NOW). Start 22:15 09/18/2016 Tarcy Mcqueen R.N., Stop 23:15 09/18/2016 Tracy Mcqueen R.N. Medication Administered: AZITHROMYCIN [IVPB], Dose: 500 mg IVPB over 1 hour(s), Rate: 250 mL/hr, Dispensed: 250 mL bag, Site: #1 right AC. Medication Ordered: Azithromycin IV 500 mg/250 mL (after blood cultures). Given 22:39 09/18/2016 Tracy Mcqueen R.N. Medication Administered: LOVENOX [SUBCUTANEOUS] (ENOXAPARIN SODIUM), Dose: 60 mg Subcutaneous. Medication Ordered: Lovenox Subcut 60 mg (HIGH ALERT MEDICATION, NOW). Given 22:40 09/18/2016 Tracy Mcqueen R.N. Medication Administered: HYDROCODONE-APAP [PO] (HYDROCODONE-ACETAMINOPHEN), Dose: 1 tab 5/325 mg Tablets PO. Medication Ordered: Hydrocodone-APAP PO 5/325 mg (NOW, HIGH ALERT MEDICATION). Given 22:40 09/18/2016 Tracy Mcqueen R.N. Medication Administered: ZOFRAN [IVP] (ONDANSETRON HCL), Dose: 4 mg IVP over 1 minute(s), Site: #1 right AC. Medication Ordered: Zofran IV 4 mg (NOW). Start 23:48 09/18/2016 Tracy Mcqueen R.N., Continued Upon Disposition 00:04 09/19/2016 Tracy Mcqueen R.N. Medication Administered: CEFTRIAXONE [IVPB], Dose: 2 gm IVPB over 30 minute(s), Rate: 100 mL/hr, Dispensed: 50 mL bag, Site: #1 right AC. Medication Ordered: Ceftriaxone IV 2 gm/50mL (NOW).
--- NOTE | 2016-09-19 02:12 | ED MED RECONCILIATION SUMMARY ---
Patient: NARAYAN NUÑEZ Medication Reconciliation Report [facility] VisitID: [id number] [address] [place] [address] 76y, F Registration Date/Time: 09/18/2016 Weight: 69.3 kg Height/Length: 60 in. BMI: 29.8 ALLERGIES: Ibuprofen, Penicillin The patient's Home Medications are listed below: THE FOLLOWING MEDICATIONS NEED TO BE RECONCILED: Insulin Percocet Oral The source(s) of the original Home Medication information: patient The following Medications were given to the patient in the Emergency Department: NITROGLYCERIN PASTE [TOPICAL] Topical 1.5 in., administered: 09/18/2016 9:33:00 PM Lasix [IVP] IVP 20 mg, administered: 09/18/2016 10:10:00 PM Azithromycin [IVPB] IVPB bolus 0, then 500 mg 250 mL/hr, administered: 09/18/2016 10:15:00 PM Lovenox [Subcutaneous] Subcutaneous 60 mg, administered: 09/18/2016 10:39:00 PM Hydrocodone-APAP [PO] PO 1 tab, administered: 09/18/2016 10:40:00 PM Zofran [IVP] IVP 4 mg, administered: 09/18/2016 10:40:00 PM Ceftriaxone [IVPB] IVPB bolus 0, then 2 gm 100 mL/hr, administered: 09/18/2016 11:48:00 PM The following Medications were prescribed to the patient: None.
--- NOTE | 2016-09-19 02:12 | ED MED RECONCILIATION SUMMARY ---
Patient: NARAYAN NUÑEZ Medication Reconciliation Report [facility] VisitID: [id number] [address] [place] [address] 76y, F Registration Date/Time: 09/18/2016 Weight: 69.3 kg Height/Length: 60 in. BMI: 29.8 ALLERGIES: Ibuprofen, Penicillin The patient's Home Medications are listed below: THE FOLLOWING MEDICATIONS NEED TO BE RECONCILED: Insulin Percocet Oral The source(s) of the original Home Medication information: patient The following Medications were given to the patient in the Emergency Department: NITROGLYCERIN PASTE [TOPICAL] Topical 1.5 in., administered: 09/18/2016 9:33:00 PM Lasix [IVP] IVP 20 mg, administered: 09/18/2016 10:10:00 PM Azithromycin [IVPB] IVPB bolus 0, then 500 mg 250 mL/hr, administered: 09/18/2016 10:15:00 PM Lovenox [Subcutaneous] Subcutaneous 60 mg, administered: 09/18/2016 10:39:00 PM Hydrocodone-APAP [PO] PO 1 tab, administered: 09/18/2016 10:40:00 PM Zofran [IVP] IVP 4 mg, administered: 09/18/2016 10:40:00 PM Ceftriaxone [IVPB] IVPB bolus 0, then 2 gm 100 mL/hr, administered: 09/18/2016 11:48:00 PM The following Medications were prescribed to the patient: None.
--- NOTE | 2016-09-19 02:12 | ED DISCHARGE INSTRUCTIONS ---
Patient: NARAYAN NUÑEZ General Instructions [facility] VisitID: [id number] [address] [place] [address] 76y, F Registration Date/Time: 09/18/2016 Acute moderate systolic, congestive heart failure. Bacterial, Mycoplasma and atypical pneumonia with hypoxemia. Vital signs recorded and reviewed; empiric antibiotics given in the ED. Chronic, moderately well controlled type 2 diabetes with hyperglycemia. No coma. Abnormal liver function test: alkaline phosphatase. Moderate leukocytosis. No lymphocytosis. Hypoxia. D-dimer elevation likely due to infection and age. (Electronically signed by Awais Khan DO 09/19/2016 2:11)
--- NOTE | 2016-09-19 07:57 | Progress Note ---
Subjective General Note Date: September 19, 2016 Admission Date: September 18, 2016 Hospital Day: 2 PCP: . Unknown Status: Inpatient Advanced Directive: No Code Room: 301 Brief History: The patient is a 76-year-old female with a significant past make a history of diabetes mellitus type 2, hypertension, chronic back pain, degenerative joint disease, who presented to [facility] emergency department secondary to complaints of painful spot right leg and shortness of breath. [facility] ER evaluation was consistent with new onset CHF and suspected pneumonia. Secondary to the above, the patient was admitted by Ignacio Menjivar M.D. for further evaluation and treatment. For other history present illness, past medical history, family history, social history, review of systems, and admission physical examination please see the patient's history and physical examination and ER visit note in the patient's medical record. Subjective: The patient states she is doing well today but has persistent mild shortness of breath. Diffuse body aches. No other complaints or requests at this time Patient requests: None Medications and Allergies Medications Current Medications Sig/Pedro Start time Last Medication Dose Route Stop Time Status Admin Ceftriaxone Sodium/ 50 ML Q24H 09/19 2200 AC Dextrose IV Furosemide 20 MG DAILY 09/19 2100 AC IV Gabapentin 300 MG TID 09/19 1400 AC 09/19 PO 1330 Amlodipine Besylate 5 MG QAM 09/19 1300 AC 09/19 PO 1330 Aspirin 81 MG DAILY 09/19 09 AC 09/19 PO 0925 Enoxaparin Sodium 40 MG DAILY 09/19 0900 AC 09/19 SC 0925 Insulin Glargine 20 UNITS BID 09/19 09 AC 09/19 SC 0925 Lisinopril 10 MG DAILY 09/19 0900 AC 09/19 PO 0925 Potassium Chloride 20 MEQ DAILY 09/19 09 AC 09/19 PO 0926 Insulin Human Lispro See Dose ACHS 09/19 0730 AC 09/19 Insts (1) SC 1158 Azithromycin 250 MG DAILY@00 09/19 0700 AC 09/19 PO 09/22 0701 0622 Pantoprazole Sodium 40 MG DAILY@00 09/19 0600 AC 09/19 Sesquihydrate PO 0622 Nitroglycerin 0.5 GM Q6HR 09/19 0000 AC 09/19 TOP 1158 Oxycodone/ 1 TAB Q4H PRN 09/18 2330 AC 09/19 Acetaminophen PO 1333 Ondansetron HCl 4 MG Q4H PRN 09/18 2245 AC 09/19 IV 0658 Dose Instructions: (1)Insulin Human Lispro: LOW DOSE SLIDING SCALE Allergies Coded Allergies: Ibuprofen (09/18/16) Penicillins (09/18/16) Physical Exam Vital Signs / I&Os Vital Signs Date Time Temp Pulse Resp B/P Pulse O2 O2 Flow FiO2 Ox Delivery Rate 09/19 0624 98.4 94 14 113/69 97 Nasal 2.0 Cannula 09/19 0350 98.4 92 14 110/58 96 Nasal 2.0 Cannula 09/19 0147 2.0 09/19 0114 Nasal 2.0 Cannula 09/19 0020 98.1 99 21 122/58 94 Nasal 2.0 Cannula 09/18 2346 2.0 General Appearance Alert, Oriented X3, Cooperative, No acute distress Lungs Normal air movement, scattered rhonchi Cardiovascular Regular rate and rhythm, Normal S1 and S2, murmur unchanged Abdomen Normal bowel sounds, Soft, No tenderness Extremities No cyanosis, No clubbing, bilateral lower extremity edema-1+ Neurological Cranial nerves intact, No lateralizing signs Psych/Mental Status Mental status normal, Mood normal LAB Results Laboratory Tests 09/19 09/19 09/19 09/19 0405 0405 0405 0405 Chemistry Plasma Sodium (136 - 145 mmol/L) 141 Plasma Potassium (3.5 - 5.1 mmol/L) 4.5 Plasma Chloride (98 - 107 mmol/L) 105 CO2 (Enzymatic) (21 - 32 mmol/L) 30 BUN (7 - 18 mg/dL) 17 Creatinine (0.6 - 1.3 mg/dL) 0.7 Est GFR ( Amer) (mL/min) >60 Est GFR (Non-Af Amer) (mL/min) >60 Glucose (70 - 110 mg/dL) 140 Plasma Calcium (8.5 - 10.1 mg/dL) 8.0 Plasma Magnesium (1.8 - 2.4 mg/dL) 2.1 Total Bilirubin (0.0 - 1.0 mg/dL) 0.4 Direct Bilirubin (0 - 0.3 mg/dL) 0.2 AST (15 - 37 U/L) 23 ALT (12 - 78 U/L) 47 Alkaline Phosphatase (46 - 116 U/L) 120 Troponin (0.00 - 1.5 ng/mL) <0.05 Total Protein (6.4 - 8.2 g/dL) 5.5 Albumin (3.3 - 5.0 g/dL) 2.4 Procalcitonin (0 - 0.5 ng/mL) <0.5 TSH 3rd Generation (0.30 - 3.74 uIU/mL) 0.611 Hematology WBC (4.5 - 11.5 K/uL) 12.6 RBC (4.00 - 5.20 M/uL) 3.75 Hgb (12.0 - 16.0 gm/dL) 10.6 Hct (36.0 - 46.0 %) 32.7 MCV (80 - 100 fL) 87 MCH (26 - 34 pg) 28 RDW (11.6 - 14.8 %) 14.1 Neut % (Auto) (50 - 75 %) 76.1 Lymph % (Auto) (25 - 40 %) 14.5 Chaves % (Auto) (3 - 14 %) 8.4 Eos % (Auto) (0 - 4 %) 0.8 Baso % (Auto) (0 - 2 %) 0.2 Plt Count, EDTA (150 - 400 K/uL) 247 PUBS MCHC (31 - 37 g/dL) 33 09/18 09/18 09/18 2200 2120 212 Chemistry B-Natriuretic Peptide (5 - 100 pg/ml) 962 Procalcitonin (0 - 0.5 ng/mL) <0.5 Urines Urine Color YELLOW Urine Appearance CLEAR Urine pH (5.0 - 8.0) 6.0 Ur Specific Palo (1.010 - 1.030) <= 1.005 Urine Protein (NEGATIVE) NEGATIVE Urine Ketones (NEGATIVE) NEGATIVE Urine Blood (NEGATIVE) NEGATIVE Urine Nitrite (NEGATIVE) NEGATIVE Urine Bilirubin (NEGATIVE) NEGATIVE Urine Urobilinogen (0.2 - 1.0 EU/dL) 1.0 Ur Leukocyte Esterase (NEGATIVE) NEGATIVE Urine RBC (0 - 1 rbc/hpf) 0-1 Urine WBC (0 - 1 wbc/hpf) 0-1 Ur Epithelial Cells (0 - 5 EPI/hpf) 0-1 Urine Bacteria (NONE SEEN) NONE SEEN Urine Glucose (NEGATIVE) 1+ Urine Comment CULT NOT INDICATED 09/18 Chemistry Plasma Sodium (136 - 145 mmol/L) 136 Plasma Potassium (3.5 - 5.1 mmol/L) 4.1 Plasma Chloride (98 - 107 mmol/L) 101 CO2 (Enzymatic) (21 - 32 mmol/L) 27 BUN (7 - 18 mg/dL) 15 Creatinine (0.6 - 1.3 mg/dL) 0.8 Est GFR ( Amer) (mL/min) >60 Est GFR (Non-Af Amer) (mL/min) >60 Glucose (70 - 110 mg/dL) 208 Plasma Calcium (8.5 - 10.1 mg/dL) 8.2 Plasma Magnesium (1.8 - 2.4 mg/dL) 2.0 Total Bilirubin (0.0 - 1.0 mg/dL) 0.5 AST (15 - 37 U/L) 29 ALT (12 - 78 U/L) 60 Alkaline Phosphatase (46 - 116 U/L) 149 Creatine Kinase (24 - 260 U/L) 92 Troponin (0.00 - 1.5 ng/mL) <0.05 Total Protein (6.4 - 8.2 g/dL) 6.9 Albumin (3.3 - 5.0 g/dL) 2.7 Amylase (25 - 115 U/L) 42 Cancelled Coagulation D-Dimer, Quantitative (0.27 - 0.52 ug/mLFEU) 2.38 Hematology WBC (4.5 - 11.5 K/uL) 13.7 RBC (4.00 - 5.20 M/uL) 4.14 Hgb (12.0 - 16.0 gm/dL) 11.9 Hct (36.0 - 46.0 %) 35.5 MCV (80 - 100 fL) 86 MCH (26 - 34 pg) 29 RDW (11.6 - 14.8 %) 13.6 Neut % (Auto) (50 - 75 %) 73.6 Lymph % (Auto) (25 - 40 %) 15.8 Chaves % (Auto) (3 - 14 %) 8.1 Eos % (Auto) (0 - 4 %) 1.6 Baso % (Auto) (0 - 2 %) 0.9 Plt Count, EDTA (150 - 400 K/uL) 267 PUBS MCHC (31 - 37 g/dL) 34 Microbiology Date/Time Procedure - Status Source Growth 09/19 0100 MRSA Screen - RECD NASAL 04/02 2220 Blood Culture - RECD BLOOD 09/19 2219 Blood Culture - RECD BLOOD Imaging Echocardiogram IMPRESSION: Ejection fraction 80% with normal contraction Stage I diastolic dysfunction LVH Left atrial enlargement Mild mitral stenosis valve area 2.3 cm2 mean peak gradient 9 mmHg LVOT pressure gradient 21-mm at rest increased to 31 mm with Valsalva Dictated by: CAMMIE MELENDEZ MD D: GERMAIN;09/19/16 1603 Chest X-Ray IMPRESSION: 1. Moderate to marked parenchymal changes in the right lung with mild changes at the left lung base. Findings are compatible with pneumonia (e.g., aspiration , bacterial, Mycoplasma). Dictated by: BRANDIE LEON MD D: CAESAR;09/18/16 0689 Assessment and Plan Problem List 1. Congestive heart failure (CHF) Plan -Patient presents with history of shortness of breath -Elevated BNP -Echocardiogram shows normal left ventricular function with diastolic dysfunction -Continue beta sanchez, KOURTNEY inhibitor -Low-dose diuretics secondary to peripheral edema -Monitor 2. Diabetes mellitus Status Chronic Onset Date Unknown Plan -Patient with history of diabetes mellitus -Placed back on her outpatient medical regimen -Monitor -Check hemoglobin A1c -Blood sugar well controlled. Fasting blood sugar today 108 mg/dL. 3. Pneumonia Status Acute Onset Date Unknown Plan -Chest x-ray consistent with pneumonia -Mild elevation of WBC with normal Procalcitonin 2 -Monitor -Continue antimicrobials switching to oral medications in a.m. with normalization of WBC, and no fever. 4. Chronic back pain Status Chronic Onset Date Unknown Plan -Stable -Continue Neurontin and when necessary narcotic analgesics -Monitor 5. Hypertension Status Chronic Onset Date Unknown Plan -Well-controlled -Blood pressure 113/69 mm record -Continue present therapy -Monitor Current status: Fair, stable Anticipated discharge date: Anticipated discharge 2 days Anticipated discharge placement: Home Patient care time: Time spent in chart review, patient interview, physical exam, CPOE, and care documentation: 25 minutes Visit to patient today: 1 Complexity of care: Moderate E&M Codes Rounding: Inpt-Moderate/[id number]
[2016-09-19] MEDS ORDERED: ASPIRIN CHILDRE81 MG PO (10:43)
[2016-09-19] MEDS ORDERED: GABAPENTIN300 MG PO (10:44)
[2016-09-19] MEDS ORDERED: LANTUS SOL100 UNITS/ SC (10:45)
[2016-09-19] MEDS ORDERED: METOCLOPRAMIDE H5 MG PO (10:45)
[2016-09-19] MEDS ORDERED: LOPRESSOR25 MG PO (10:45)
[2016-09-19] MEDS ORDERED: NIFEDIPINE ER30 MG PO (10:46)
[2016-09-19] MEDS ORDERED: PRILOSEC20 MG PO (10:47)
[2016-09-19] MEDS ORDERED: AMLODIPINE BESYL5 MG PO (11:30)
--- NOTE | 2016-09-19 16:04 | DIAGNOSTIC IMAGING REPORT ---
PROCEDURE: 2-D M-mode echo Doppler CLINICAL INDICATION: CHF TECHNIQUE: Standard technique COMPARISON: None FINDINGS: The aortic valve was not well seen but opening amplitude is normal there is no evidence for stenosis or insufficiency. The mitral valve exhibits one to 2+ MR with mild thickening of the mitral valve leaflets mitral annular calcification is present Mild stenosis present with a mean peak gradient of 9 mmHg mitral valve area 2.3 cm2 The tricuspid valve is normal configuration ; right heart pressures normal pulmonic valve is normal LVH is present Left ventricular contractility preserved with an ejection fraction 80% with normal contraction grade 1 diastolic dysfunction present. The right ventricle is normal in size exhibits normal contractility and function and pressure. Left atrium is severely increased in size right atrium is normal in size. No abnormalities of the aortic order pericardium are present IMPRESSION: Ejection fraction 80% with normal contraction Stage I diastolic dysfunction LVH Left atrial enlargement Mild mitral stenosis valve area 2.3 cm2 mean peak gradient 9 mmHg LVOT pressure gradient 21-mm at rest increased to 31 mm with Valsalva
[2016-09-20 03:00] VITALS: BP 123/57
[2016-09-20 07:04] VITALS: BP 122/56
[2016-09-20] MEDS ORDERED: GABAPENTIN300 MG PO (09:55)
[2016-09-20] MEDS ORDERED: ZITHROMAX250 MG PO (09:56)
--- NOTE | 2016-09-20 09:57 | Provider's Discharge Care Plan ---
Problem, Goal, Plan Problem List 1. Pneumonia Instructions: - take antibiotics as prescribed 2. Diabetes mellitus Instructions: - follow new dose of gabapentin 3. Hypertension Instructions: Take meds as directed
--- NOTE | 2016-09-23 16:03 | Discharge Summary ---
Discharge Summary Report Admit Date 09/18/16 Discharge Date 09/20/16 Admission Diagnosis upper respiratory infection Discharge Diagnosis pneumonia Brief History please refer to patients original H&P Hospital Course Patient was admitted for shortness of breath and cough. Patient was found to have pneumonia and signs of congestive heart failure. Patient had an echocardiogram which did not reveal any major cardiac dysfunction. Additionally patient was treated with antibioitics and had an appropriate decrease in her white blood cell count and resolution of symptoms. Patient at this point is stable for discharge. Patient will continue an out patient course of antibiotics and follow up with her primary care provider. General Appearance Alert, Oriented X3, No acute distress Lungs Clear to auscultation Cardiovascular Regular Rate, Normal S1, Normal S2 Abdomen Soft, No hepatospenomegaly Skin No Breakdown, No Significant Lesions Psych/Mental Status Mood NL Lab/Imaging Echocardiogram IMPRESSION: Ejection fraction 80% with normal contraction Stage I diastolic dysfunction LVH Left atrial enlargement Mild mitral stenosis valve area 2.3 cm2 mean peak gradient 9 mmHg LVOT pressure gradient 21-mm at rest increased to 31 mm with Valsalva Dictated by: CAMMIE MELENDEZ MD D: GERMAIN;09/19/16 8393 Chest X-Ray IMPRESSION: 1. Moderate to marked parenchymal changes in the right lung with mild changes at the left lung base. Findings are compatible with pneumonia (e.g., aspiration , bacterial, Mycoplasma). Discharge Instructions/Meds - finish course of antibiotics - follow up with your primary care provider
== END 2016-09-20 11:27 | disposition home or self-care (01) | DRG 291 ==
LOC: ED SRH 20:48 → TRANS SRH 22:08 → CC SRH 22:08 → TRANS SRH 22:08 → CC SRH 09-19 00:32 → TRANS SRH 09-19 00:32 → CC SRH 09-19 00:32
PROVIDERS: ADMIT Internal Medicine
DX: I11.0 Hypertensive heart disease with heart failure (principal); I50.31 Acute diastolic (congestive) heart failure; J18.9 Pneumonia, unspecified organism; R74.8 Abnormal levels of other serum enzymes; E11.9 Type 2 diabetes mellitus without complications; Z79.4 Long term (current) use of insulin; G89.29 Other chronic pain; M54.9 Dorsalgia, unspecified

== ENCOUNTER 2016-09-23 13:52 | Inpatient (IN) | payer OTHER ==
[~2016-09-23] VITALS: Ht 160 cm; Wt 77.0 kg
[~2016-09-23 13:52] MED LIST: AMLODIPINE BESYL5 MG PO; ASPIRIN CHILDRE81 MG PO; GABAPENTIN300 MG PO; LANTUS SOL100 UNITS/ SC; LOPRESSOR25 MG PO; METOCLOPRAMIDE H5 MG PO; NIFEDIPINE ER30 MG PO; PERCOCET1 TA1 PO; PRILOSEC20 MG PO; ZITHROMAX250 MG PO
--- NOTE | 2016-09-23 14:46 | DIAGNOSTIC IMAGING REPORT ---
PROCEDURE: XR CHEST 1 VIEW INDICATION: SHORTNESS OF BREATH TECHNIQUE: Portable AP view 02:20 p.m. COMPARISON: Chest 09/18/2016 FINDINGS: There is an increase in the left lower lobe infiltrate. The infiltrate in right lung is unchanged. IMPRESSION: 1. Increase in left lower lobe infiltrate. Right lung unchanged.
--- NOTE | 2016-09-23 17:12 | ED ORDER SUMMARY ---
..... Patient: NARAYAN NUÑEZ OrderSheet [facility] VisitID: [id number] [place] [address] 76y, F Registration Date/Time: 09/23/2016 ORDER SHEET Weight: 70.7 kg (stated) Allergies: Ibuprofen, Penicillin, Hydrocodone, NSAIDs GENERAL ORDERS: Germination Testing Manager (Continuous) (14:20 09/23/2016 Joaquin R.N. verbal order read back to Earline GUNDERSON) (14:22 SBalde R.N.) CBC w Diff Urgent (14:21 09/23/2016 Joaquin R.N. verbal order read back to Earline GUNDERSON) (Ack 14:25 Winifred) (14:28 JRomanelli R.N.) (Cancelled: Other14:28 JRomanelli R.N.) Oxygen (2 L/min) (NC) (14:21 09/23/2016 Joaquin R.N. verbal order read back to Earline GUNDERSON) (14:22 SBalde R.N.) Pulse oximeter (14:21 09/23/2016 Sharrielli R.N. verbal order read back to Earline GUNDERSON) (14:22 SBalde R.N.) EKG - ER Stat (14:21 09/23/2016 Sharrielli R.N. verbal order read back to Earline GUNDERSON) (14:22 SBalde R.N.) Chest 1V Urgent (14:21 09/23/2016 Joaquin R.N. verbal order read back to Earline GUNDERSON) (Ack 14:25 Winifred) (14:30 SBalde R.N.) Cardiac Panel Stat (14:23 09/23/2016 omanelli R.N. verbal order read back to Earline GUNDERSON) (Ack 14:26 Winifred) (14:47 SBalde R.N.) UA-Culture if indicated Urgent (14:51 09/23/2016 Earline GUNDERSON) (Ack 15:08 Winifred) (15:09 SBalde R.N.) Blood Culture (Yes) (Zithromax) Urgent (15:28 09/23/2016 Earline GUNDERSON) (Ack 15:34 Winifred) (16:50 SBalde R.N.) BNP Urgent (16:19 09/23/2016 Earline GUNDERSON) (Ack 16:24 Cayla) (16:50 SBalde R.N.) MEDICATION ORDERS: Percocet PO 5/325 mg (HIGH ALERT MEDICATION, NOW) (17:12 09/23/2016 Earline GUNDERSON) (17:28 SBalde R.N.) IV FLUIDS: IV Saline Lock (14:21 09/23/2016 Joaquin R.NVicki verbal order read back to Earline GUNDERSON) (14:22 SBalde R.N.) Dilaudid IV 1 mg (HIGH ALERT MEDICATION, NOW) (14:51 09/23/2016 Earline GUNDERSON) (15:09 SBalde R.N.) Cefepime IV 2 gm/50mL (NOW) (16:19 09/23/2016 Earline GUNDERSON) (Ack 17:02 SBalde R.N.) (18:16 SRoberts R.N.) Vancomycin IV 1 gm/200mL (NOW) (16:19 09/23/2016 Earline GUNDERSON) (Ack 16:35 SBalde R.N.) (16:50 SBalde R.N.) ORDER SHEET NOTES: [Electronically signed by Lien Davis R.N. (18:58 09/23/2016)] [Electronically signed by Sarah Fuentes MD (22:02 09/28/2016)] [Electronically locked/signed by Lien Davis R.N. (18:58 09/23/2016)]
--- NOTE | 2016-09-23 17:12 | ED NURSING NOTES ---
Clinical Report - Nurses [facility] [address] [place] [address] 09/23/2016 13:54 Patient: NARAYAN NUÑEZ TRIAGE Triage time 13:57 Sep 23 2016. Acuity: LEVEL 2. Chief Complaint: CHEST PAIN. Alert. No acute distress. --14:03 Lien Davis R.N. 13:59 09/23/16. BP: 122/69. HR: 78. RR: 20. O2 saturation: 96%. Temp: 98.1 F. Pain level now 09/26. --14:03 Lien Davis R.N. Weight: 70.7 kg stated. Height/Length: 62 inches Estimated. BMI: 28.5. --13:56 Lien Davis R.N. Medications Percocet Oral 5/325 mg, 3x a day (takes for Arthritis). --13:58 Lien Davis R.N. Aspirin Oral (Tablet Chewable 81 mg). --15:16 Lien Davis R.N. Metoclopramide HCl Oral 10 mg, 2x a day (1/2 tab twice a day). --15:17 Lien Davis R.N. Metoprolol Tartrate Oral 25 mg, BID. --15:18 Lien Davis R.N. Omeprazole Oral 20 mg, daily. --15:18 Lien Davis R.N. Gabapentin Oral 300 mg, 3x a day (1 tab TID). --15:19 Lien Davis R.N. AmLODIPine Besylate Oral 5 mg, daily. --15:24 Lien Davis R.N. Lantus Subcutaneous (Solution 100 unit/mL) 20 units, 2x a day. --15:25 Lien Davis R.N. Minerin External. --15:26 Lien Davis R.N. Azithromycin Oral 250 mg (5 day course). --15:27 Lien Davis R.N. The following entry was struck and corrected by Lien Davis R.N., 17:03 (09/23/16) Reason for correction - other(correction). <<STRICKEN ENTRY-- Percocet Oral 7.5/325 mg, 3x a day (takes for Arthritis). --13:58 Lien Davis R.N. --END STRIKE>> The following entry was struck by Lien Davis R.N., 15:25 (09/23/16) Reason - other. <<STRICKEN ENTRY-- Insulin, 2x a day (Novolog, unknown dose). --13:58 Lien Davis R.N. --END STRIKE>> The following entry was struck and corrected by Lien Davis R.N., 14:02 (09/23/16) Reason for correction - other(correction). [facility]. --13:58 Lien Davis R.N. --END STRIKE>> The following entry was struck and corrected by Lien Davis R.N., 14:01 (09/23/16) Reason for correction - other(correction). <<[facility]-- Percocet Oral. --13:58 Lien Davis R.N. --END STRIKE>>. Medication/allergy information source: the patient. --14:03 Lien Davis R.N. Allergies Ibuprofen. Penicillin. --13:58 Lien Davis R.N. Hydrocodone. (GI Intolerance/Abdominal Pain) --14:24 Lien Davis R.N. NSAIDs. (GI Intolerance) --17:03 Lien Davis R.N. History Arrived by EMS, and (Blanket 12). Historian: patient. Treatment LENS CUTTER: None. SOCIAL HX: Never smoker. No alcohol use or drug use. No infectious disease exposure. NUTRITIONAL RISK ASSESSMENT: The nutritional risk assessment revealed no deficiencies. FUNCTIONAL ASSESSMENT: Functional assessment: no impairments noted. LEARNING NEEDS ASSESSMENT: The learning needs assessment revealed no barriers. SKIN INTEGRITY ASSESSMENT: Skin integrity risk assessment completed. No skin integrity risk identified. --14:03 Lien Davis R.N. PROBLEMS: Hypoxia. Leukocytosis. Abnormal Liver Function Test. Pneumonia. Congestive Heart Failure. Arthritis. Chronic Back Pain. Diabetes Mellitus. --14:02 Line Davis R.N. ADDITIONAL SURGERIES: Back Surgery. Cholecystectomy. --14:02 Lien Davis R.N. PHYSICAL ASSESSMENT To room via stretcher. GENERAL / NEURO / PSYCH: Oriented X 4. Appears in no acute distress. RESPIRATORY: Chest nontender. CVS: Capillary refill less than 2 seconds. GI / : Abdomen soft. SKIN: Skin is warm and dry. --14:30 Lien Davis R.N. RESPIRATORY: Respirations not labored. Breath sounds within normal limits. CVS: Normal sinus rhythm noted. Capillary refill less than 2 seconds. --16:52 iLen Davis R.N. NURSING PROGRESS NOTES EKG time: (14:03). EKG was performed by a tech and shown to the ED physician. --14:08 Diana Alberts 14:22 09/23/2016 Site #1 started via IV in the left antecubital space with an 20g angiocath; two attempts. Blood drawn: rainbow set. Labeled in the presence of the patient and sent to the lab. Saline lock flushed with 10 mL saline. --14:22 Lien Davis R.N. ( med list coming from [facility], pt does not know her meds.). --14:24 Lien Davis R.N. ( Pt having portable CXR.). --14:29 Lien Davis R.N. ( Pt asking for pain medicine, states she didn't take her dose since last night. MD made aware of pt's request.). --14:30 Lien Davis R.N. 15:09 09/23/2016 Dilaudid (HYDROmorphone HCl PF) IVP 0.5 mg given over 1 minute(s) via site #1. Sedative warning given to the patient and patient's family. IV patency established. IV site checked: no pain, redness, or swelling. IV flushed thoroughly pre- and post-medication administration. IVP given by RN (pt took 1/2 does to see if it would help, if not will take the other half. Daughter made aware of this also.). --15:09 Lien Davis R.N. ( medicated. Ice Chips.). --15:28 Lien Davis R.N. 15:28 09/23/16. BP: 113/85. HR: 81. --15:28 Lien Davis R.N. 15:30 09/23/16. Pain level now 01/26. --15:31 Lien Davis R.N. Overall patient status is the same- she states feels the same. ( pt called and stated her pain is not improving, pt medicated with the other half of Dilaudid.). --15:31 Lien Davis R.N. 15:38 09/23/2016 Dilaudid IVP Response: symptoms are the same. The patient feels the same. Nurse notified. --15:38 Lien Davis R.N. 15:39 09/23/2016 Dilaudid IVP Response: (Dilaudid 0.5mg given. 1mg total dose.). --15:39 Lien Davis R.N. 16:33 09/23/16. BP: 114/53. HR: 83. RR: 18. O2 saturation: 93%. --16:33 Lien Davis R.N. Patient waiting for admit bed. --16:33 Lien Davis R.N. 16:50 09/23/2016 Started 1 gm of Vancomycin IVPB in bag #1 200 mL; at 200 mL/hr over 1 hour(s) via site #1 via IV pump. Allergies verified and confirmed 5 rights. IV patency established. IV site checked: no pain, redness, or swelling. IV flushed thoroughly pre- and post-medication administration. Completed per protocol. --16:50 Lien Davis R.N. Blood samples drawn by nurse: blood culture (2nd set). --16:52 Lien Davis R.N. 17:28 09/23/2016 Percocet (Oxycodone-Acetaminophen) PO 5/325 mg Tablets 1 tab given. Allergies verified, confirmed 5 rights and sedative warning given to the patient. --17:28 Lien Davis R.N. 18:00 09/23/2016 Vancomycin IVPB Discontinued: bag #1 infused. Total amount infused: 200 mL. IV patency established. IV site checked: no pain, redness, or swelling. IV flushed thoroughly. --18:15 Tara Mascorro R.N. 18:16 09/23/2016 Started 2 gm of Cefepime IVPB in bag #1 100 mL; at 140 mL/hr over 40 minute(s) via site #1 via IV pump. Allergies verified and confirmed 5 rights. IV patency established. IV site checked: no pain, redness, or swelling. IV flushed thoroughly pre- and post-medication administration. --18:16 Tara Mascorro R.N. 18:39 09/23/2016 Cefepime IVPB Discontinued: bag #1 infused. Total amount infused: 50 mL. IV patency established. IV site checked: no pain, redness, or swelling. IV flushed thoroughly. --18:39 Lien Davis R.N. DISPOSITION / DISCHARGE 18:19 09/23/16. BP: 116/56. HR: 80. RR: 18. O2 saturation: 98%. Pain level now 7/10. --18:21 Lien Davis R.N. Departure time: 18:27 Sep 23 2016. Admitted to the Critical Care Unit. Report was given to a nurse via a phone call. Report included patient's care, treatment, medications, reviewed medication reconcilliation, and condition (including any recent changes or anticipated changes). All questions were answered. Report was acknowledged. (LUIS FELIPE Roblero). --18:28 Lien Davis R.N. Locked/Released at 09/23/2016 18:58 by Lien Davis R.N.
--- NOTE | 2016-09-23 17:12 | ED ORDER SUMMARY ---
..... Patient: NARAYAN NUÑEZ OrderSheet [facility] VisitID: [id number] [place] [address] 76y, F Registration Date/Time: 09/23/2016 ORDER SHEET Weight: 70.7 kg (stated) Allergies: Ibuprofen, Penicillin, Hydrocodone, NSAIDs GENERAL ORDERS: Pad Hand (Continuous) (14:20 09/23/2016 Joaquin R.N. verbal order read back to Earline GUNDERSON) (14:22 SBalde R.N.) CBC w Diff Urgent (14:21 09/23/2016 Joaquin R.N. verbal order read back to Earline GUNDERSON) (Ack 14:25 Winifred) (14:28 JRomanelli R.N.) (Cancelled: Other14:28 JRomanelli R.N.) Oxygen (2 L/min) (NC) (14:21 09/23/2016 Joaquin R.N. verbal order read back to Earline GUNDERSON) (14:22 SBalde R.N.) Pulse oximeter (14:21 09/23/2016 Sharrielli R.N. verbal order read back to Earline GUNDERSON) (14:22 SBalde R.N.) EKG - ER Stat (14:21 09/23/2016 Sharrielli R.N. verbal order read back to Earline GUNDERSON) (14:22 SBalde R.N.) Chest 1V Urgent (14:21 09/23/2016 Joaquin R.N. verbal order read back to Earline GUNDERSON) (Ack 14:25 Winifred) (14:30 SBalde R.N.) Cardiac Panel Stat (14:23 09/23/2016 omanelli R.N. verbal order read back to Earline GUNDERSON) (Ack 14:26 Winifred) (14:47 SBalde R.N.) UA-Culture if indicated Urgent (14:51 09/23/2016 Earline GUNDERSON) (Ack 15:08 Winifred) (15:09 SBalde R.N.) Blood Culture (Yes) (Zithromax) Urgent (15:28 09/23/2016 Earline GUNDERSON) (Ack 15:34 Winifred) (16:50 SBalde R.N.) BNP Urgent (16:19 09/23/2016 Earline GUNDERSON) (Ack 16:24 Cayla) (16:50 SBalde R.N.) MEDICATION ORDERS: Percocet PO 5/325 mg (HIGH ALERT MEDICATION, NOW) (17:12 09/23/2016 Earline GUNDERSON) (17:28 SBalde R.N.) IV FLUIDS: IV Saline Lock (14:21 09/23/2016 Joaquin R.NVicki verbal order read back to Earline UGNDERSON) (14:22 SBalde R.N.) Dilaudid IV 1 mg (HIGH ALERT MEDICATION, NOW) (14:51 09/23/2016 Earline GUNDERSON) (15:09 SBalde R.N.) Cefepime IV 2 gm/50mL (NOW) (16:19 09/23/2016 Earline GUNDERSON) (Ack 17:02 SBalde R.N.) (18:16 SRoberts R.N.) Vancomycin IV 1 gm/200mL (NOW) (16:19 09/23/2016 Earline GUNDERSON) (Ack 16:35 SBalde R.N.) (16:50 SBalde R.N.) ORDER SHEET NOTES: [Electronically signed by Lien Davis R.N. (18:58 09/23/2016)] [Electronically signed by Sarah Fuentes MD (22:02 09/28/2016)] [Electronically locked/signed by Lien Davis R.N. (18:58 09/23/2016)]
--- NOTE | 2016-09-23 17:12 | ED NURSING NOTES ---
Clinical Report - Nurses [facility] [address] [place] [address] 09/23/2016 13:54 Patient: NARAYAN NUÑEZ TRIAGE Triage time 13:57 Sep 23 2016. Acuity: LEVEL 2. Chief Complaint: CHEST PAIN. Alert. No acute distress. --14:03 Lien Davis R.N. 13:59 09/23/16. BP: 122/69. HR: 78. RR: 20. O2 saturation: 96%. Temp: 98.1 F. Pain level now 09/26. --14:03 Lien Davis R.N. Weight: 70.7 kg stated. Height/Length: 62 inches Estimated. BMI: 28.5. --13:56 Lien Davis R.N. Medications Percocet Oral 5/325 mg, 3x a day (takes for Arthritis). --13:58 Lien Davis R.N. Aspirin Oral (Tablet Chewable 81 mg). --15:16 Lien Davis R.N. Metoclopramide HCl Oral 10 mg, 2x a day (1/2 tab twice a day). --15:17 Lien Davis R.N. Metoprolol Tartrate Oral 25 mg, BID. --15:18 Lien Davis R.N. Omeprazole Oral 20 mg, daily. --15:18 Lien Davis R.N. Gabapentin Oral 300 mg, 3x a day (1 tab TID). --15:19 Lien Davis R.N. AmLODIPine Besylate Oral 5 mg, daily. --15:24 Lien Davis R.N. Lantus Subcutaneous (Solution 100 unit/mL) 20 units, 2x a day. --15:25 Lien Davis R.N. Minerin External. --15:26 Lien aDvis R.N. Azithromycin Oral 250 mg (5 day course). --15:27 Lien Davis R.N. The following entry was struck and corrected by Lien Davis R.N., 17:03 (09/23/16) Reason for correction - other(correction). <<STRICKEN ENTRY-- Percocet Oral 7.5/325 mg, 3x a day (takes for Arthritis). --13:58 Lien Davis R.N. --END STRIKE>> The following entry was struck by Lien Davis R.N., 15:25 (09/23/16) Reason - other. <<STRICKEN ENTRY-- Insulin, 2x a day (Novolog, unknown dose). --13:58 Lien Davis R.N. --END STRIKE>> The following entry was struck and corrected by Lien Davis R.N., 14:02 (09/23/16) Reason for correction - other(correction). [facility]. --13:58 Lien Davis R.N. --END STRIKE>> The following entry was struck and corrected by Lien Davis R.N., 14:01 (09/23/16) Reason for correction - other(correction). <<[facility]-- Percocet Oral. --13:58 Lien Davis R.N. --END STRIKE>>. Medication/allergy information source: the patient. --14:03 Lien Davis R.N. Allergies Ibuprofen. Penicillin. --13:58 Lien Davis R.N. Hydrocodone. (GI Intolerance/Abdominal Pain) --14:24 Lien Davis R.N. NSAIDs. (GI Intolerance) --17:03 Lien Davis R.N. History Arrived by EMS, and ([place] [facility]). Historian: patient. Treatment [employer]: None. SOCIAL HX: Never smoker. No alcohol use or drug use. No infectious disease exposure. NUTRITIONAL RISK ASSESSMENT: The nutritional risk assessment revealed no deficiencies. FUNCTIONAL ASSESSMENT: Functional assessment: no impairments noted. LEARNING NEEDS ASSESSMENT: The learning needs assessment revealed no barriers. SKIN INTEGRITY ASSESSMENT: Skin integrity risk assessment completed. No skin integrity risk identified. --14:03 Lien Davis R.N. PROBLEMS: Hypoxia. Leukocytosis. Abnormal Liver Function Test. Pneumonia. Congestive Heart Failure. Arthritis. Chronic Back Pain. Diabetes Mellitus. --14:02 Lien Davis R.N. ADDITIONAL SURGERIES: Back Surgery. Cholecystectomy. --14:02 Lien Davis R.N. PHYSICAL ASSESSMENT To room via stretcher. GENERAL / NEURO / PSYCH: Oriented X 4. Appears in no acute distress. RESPIRATORY: Chest nontender. CVS: Capillary refill less than 2 seconds. GI / : Abdomen soft. SKIN: Skin is warm and dry. --14:30 Lien Davis R.N. RESPIRATORY: Respirations not labored. Breath sounds within normal limits. CVS: Normal sinus rhythm noted. Capillary refill less than 2 seconds. --16:52 Lien Davis R.N. NURSING PROGRESS NOTES EKG time: (14:03). EKG was performed by a tech and shown to the ED physician. --14:08 Diana Alberts 14:22 09/23/2016 Site #1 started via IV in the left antecubital space with an 20g angiocath; two attempts. Blood drawn: rainbow set. Labeled in the presence of the patient and sent to the lab. Saline lock flushed with 10 mL saline. --14:22 Lien Davis R.N. ( med list coming from [facility], pt does not know her meds.). --14:24 Lien Davis R.N. ( Pt having portable CXR.). --14:29 Lien Davis R.N. ( Pt asking for pain medicine, states she didn't take her dose since last night. MD made aware of pt's request.). --14:30 Lien Davis R.N. 15:09 09/23/2016 Dilaudid (HYDROmorphone HCl PF) IVP 0.5 mg given over 1 minute(s) via site #1. Sedative warning given to the patient and patient's family. IV patency established. IV site checked: no pain, redness, or swelling. IV flushed thoroughly pre- and post-medication administration. IVP given by RN (pt took 1/2 does to see if it would help, if not will take the other half. Daughter made aware of this also.). --15:09 Lien Davis R.N. ( medicated. Ice Chips.). --15:28 Lien Davis R.N. 15:28 09/23/16. BP: 113/85. HR: 81. --15:28 Lien Davis R.N. 15:30 09/23/16. Pain level now 01/26. --15:31 Lien Davis R.N. Overall patient status is the same- she states feels the same. ( pt called and stated her pain is not improving, pt medicated with the other half of Dilaudid.). --15:31 Lien Davis R.N. 15:38 09/23/2016 Dilaudid IVP Response: symptoms are the same. The patient feels the same. Nurse notified. --15:38 Lien Davis R.N. 15:39 09/23/2016 Dilaudid IVP Response: (Dilaudid 0.5mg given. 1mg total dose.). --15:39 Lien Davis R.N. 16:33 09/23/16. BP: 114/53. HR: 83. RR: 18. O2 saturation: 93%. --16:33 Lien Davis R.N. Patient waiting for admit bed. --16:33 Lien Davis R.N. 16:50 09/23/2016 Started 1 gm of Vancomycin IVPB in bag #1 200 mL; at 200 mL/hr over 1 hour(s) via site #1 via IV pump. Allergies verified and confirmed 5 rights. IV patency established. IV site checked: no pain, redness, or swelling. IV flushed thoroughly pre- and post-medication administration. Completed per protocol. --16:50 Lien Davis R.N. Blood samples drawn by nurse: blood culture (2nd set). --16:52 Lien Davis R.N. 17:28 09/23/2016 Percocet (Oxycodone-Acetaminophen) PO 5/325 mg Tablets 1 tab given. Allergies verified, confirmed 5 rights and sedative warning given to the patient. --17:28 Lien Davis R.N. 18:00 09/23/2016 Vancomycin IVPB Discontinued: bag #1 infused. Total amount infused: 200 mL. IV patency established. IV site checked: no pain, redness, or swelling. IV flushed thoroughly. --18:15 Tara Mascorro R.N. 18:16 09/23/2016 Started 2 gm of Cefepime IVPB in bag #1 100 mL; at 140 mL/hr over 40 minute(s) via site #1 via IV pump. Allergies verified and confirmed 5 rights. IV patency established. IV site checked: no pain, redness, or swelling. IV flushed thoroughly pre- and post-medication administration. --18:16 Tara Mascorro R.N. 18:39 09/23/2016 Cefepime IVPB Discontinued: bag #1 infused. Total amount infused: 50 mL. IV patency established. IV site checked: no pain, redness, or swelling. IV flushed thoroughly. --18:39 Lien Davis R.N. DISPOSITION / DISCHARGE 18:19 09/23/16. BP: 116/56. HR: 80. RR: 18. O2 saturation: 98%. Pain level now 7/10. --18:21 Lien Davis R.N. Departure time: 18:27 Sep 23 2016. Admitted to the Critical Care Unit. Report was given to a nurse via a phone call. Report included patient's care, treatment, medications, reviewed medication reconcilliation, and condition (including any recent changes or anticipated changes). All questions were answered. Report was acknowledged. (LUIS FELIPE Roblero). --18:28 Lien Davis R.N. Locked/Released at 09/23/2016 18:58 by Lien Davis R.N.
--- NOTE | 2016-09-23 17:12 | ED CLINICAL REPORT ---
Clinical Report - Physicians/Mid Levels [facility] [address] [place] [address] 09/23/2016 13:54 Patient: NARAYAN NUÑEZ Time Seen: 1353. Arrived- By ambulance. Historian- patient and EMS personnel. HISTORY OF PRESENT ILLNESS Chief Complaint: DYSPNEA and CHEST PAIN. This started about 1 week ago and is still present. The dyspnea is described as moderate. The dyspnea is worsened by walking and exertion (nothing improves). The patient has had a cough and dyspnea on exertion. No sputum production, fever, sweating episodes, wheezing or chills. No calf pain, foot swelling, anxiety, dizziness or tingling. No numbness or palpitations. The patient has had moderate generalized chest tightness. (The patient was recently discharged after having been admitted here for pneumonia. She states that she has been feeling about like this with chest tightness and shortness of breath since her discharge. She states she does live at home with other family members but has been having a hard time functioning at home due to feeling ill. Symptoms have not worsened over the past few days that have not improved either. Patient denies having fevers.). Similar symptoms previously: Recent medical care: The patient was seen recently at another facility and hospitalized. REVIEW OF SYSTEMS The patient has not had weight loss. No muscle aches, eye irritation, sore throat, nasal discharge or sinus drainage. No nausea, vomiting, abdominal pain, diarrhea or black stools. No headache, fainting episodes, blurred vision, difficulty with urination or excessive urination. No skin rash, enlarged lymph nodes or joint pain. All systems otherwise negative, except as recorded above. PAST HISTORY Problems: Hypoxia. Abnormal Liver Function Test. Pneumonia. Congestive Heart Failure. Arthritis. Chronic Back Pain. Diabetes Mellitus. Additional Surgeries: Back Surgery. Cholecystectomy. Medications: Insulin, 2x a day (Novolog, unknown dose). Percocet Oral 7.5/325 mg, 3x a day (takes for Arthritis). Allergies: Ibuprofen. Penicillin. SOCIAL HISTORY Never smoker. No alcohol use or drug use. ADDITIONAL NOTES The nursing notes have been reviewed. PHYSICAL EXAM Vital Signs: 09/23/2016 13:59 BP: 122/69. HR: 78. RR: 20. O2 saturation: 96%. Temp: 98.1 F. Have been reviewed. Appearance: Alert. No acute distress. (PT appears mildly uncomfortable.). Eyes: Pupils equal, round and reactive to light. Eyes normal inspection. ENT: Nose normal. Neck: Normal inspection. Neck supple. CVS: Normal heart rate and rhythm. Heart sounds normal. Pulses normal. Respiratory: No respiratory distress. Breath sounds normal. Abdomen: Soft and nontender. Back: Normal inspection. No CVA tenderness. Skin: Skin warm and dry. Normal skin color. No rash. Normal skin turgor. Extremities: Extremities exhibit normal ROM. No lower extremity edema. Neuro: Oriented X 3. No motor deficit. No sensory deficit. LABS, X-RAYS, AND EKG EKG: EKG time: (1403). Normal sinus rhythm. Rate: 80. Left atrial enlargement. Normal QRS complex. Normal axis. Prolonged QT. Prior EKG unavailable. The study has been interpreted contemporaneously by me. The study has been independently viewed by me. The EKG appears to be a good tracing. I agree with and confirm the computer reading of the EKG. Rhythm Strip #1: Time: (1400). Rate= 84. Normal sinus rhythm. Regular rhythm. Narrow QRS complexes. No ectopy. Conduction normal. Normal ST segments and T waves. The study was interpreted by me. Chest X-ray: Infiltrate in the right lung and left lung (Worsened on L since last x-ray). Consistent with pneumonia. Normal heart size. Mediastinum normal. Great vessels normal. Soft tissues normal. No fracture. No bony lesion present. Views: AP (portable). Technique: good. The X-rays were independently viewed by me, interpreted by the radiologist and contemporaneously by me and discussed with the radiologist. A comparison with prior films reveals that the findings have worsened. Laboratory Tests: UA-Culture if indicated: (EVARISTO: 09/23/2016 15:00) ( MsgRcvd 09/23/2016 15:33) Final results Test Result Flag Units (Reference) URINE COLOR YELLOW URINE APPEARANCE CLEAR URINE GLUCOSE 3+ (NEGATIVE) URINE BILIRUBIN NEGATIVE (NEGATIVE) URINE KETONE NEGATIVE (NEGATIVE) URINE SPECIFIC GRAVITY 1.010 (1.010-1.030) URINE PH 7.0 (5.0-8.0) URINE PROTEIN NEGATIVE (NEGATIVE) URINE UROBILINOGEN 0.2 EU/dL (0.2-1.0) URINE NITRITE NEGATIVE (NEGATIVE) URINE BLOOD NEGATIVE (NEGATIVE) URINE LEUK ESTERASE NEGATIVE (NEGATIVE) URINE RBC 0-1 rbc/hpf (0-1) URINE WBC 0-1 wbc/hpf (0-1) URINE EPITHELIAL CELLS NONE SEEN EPI/hpf (0-5) URINE BACTERIA NONE SEEN (NONE SEEN) URINE COMMENT CULT NOT INDICATED URINE CULTURES ARE SET-UP BASED ON THE FOLLOWING CRITERIA:POSITIVE NITRITEPOSITIVE LEUKOCYTE ESTERASEGREATER THAN 10 WHITE BLOOD CELLSMODERATE (2+) OR GREATER BACTERIA CBC w Diff: (EVARISTO: 09/23/2016 14:35) ( MsgRcvd 09/23/2016 14:41) Final results Test Result Flag Units (Reference) WHITE BLOOD COUNT 7.6 # K/uL (4.5-11.5) RED BLOOD COUNT 4.12 M/uL (4.00-5.20) HEMOGLOBIN 11.7 L gm/dL (12.0-16.0) HEMATOCRIT 35.5 L % (36.0-46.0) MEAN CELL VOLUME 86 fL (80-100) MEAN CORPUSCULAR HGB 28 pg (26-34) MEAN CORPUSCULAR HGB CONC 33 g/dL (31-37) RED CELL DISTRIBUTION WIDTH 13.3 % (11.6-14.8) PLATELET COUNT 459 H K/uL (150-400) NEUTROPHIL % 68.0 % (50-75) LYMPH % 21.7 L % (25-40) MONO % 6.2 % (3-14) EOSINOPHIL % 3.0 % (0-4) BASOPHIL % 1.1 % (0-2) BNP: (EVARISTO: 09/23/2016 14:35) ( MsgRcvd 09/23/2016 16:51) Final results Test Result Flag Units (Reference) B-TYPE NATRIURETIC PEPTIDE 1080 H pg/ml (5-100) CHEM 13 PANEL: (EVARISTO: 09/23/2016 14:20) ( MsgRcvd 09/23/2016 14:55) Final results Test Result Flag Units (Reference) GLUCOSE 310 H mg/dL (70-110) BUN 9 mg/dL (7-18) CREATININE 0.6 mg/dL (0.6-1.3) Estimated GFR >60 mL/min Estimated GFR- >60 mL/min Note: Persistent reduction over 3 months in eGFR<60 mL/min/1.73 m2 defines CKD. Patients with eGFR values>=60 mL/min/1.73 m2 may also have CKD if evidence ofpersistent proteinuria. Additional information may be foundat www.kidney.org. SODIUM 138 mmol/L (136-145) POTASSIUM 3.9 mmol/L (3.5-5.1) CHLORIDE 103 mmol/L (98-107) CARBON DIOXIDE 26 mmol/L (21-32) CALCIUM 8.3 L mg/dL (8.5-10.1) TOTAL PROTEIN 7.1 g/dL (6.4-8.2) ALBUMIN 2.5 L g/dL (3.3-5.0) BILIRUBIN, TOTAL 0.2 mg/dL (0.0-1.0) ALKALINE PHOSPHATASE 118 H U/L (46-116) AST (SGOT) 16 U/L (15-37) ALT (SGPT) 19 U/L (12-78) MAGNESIUM 2.3 mg/dL (1.8-2.4) CPK 56 U/L (24-260) TROPONIN I <0.05 ng/mL (0.00-1.5) TROPONIN REFERENCE RANGE:<0.1 NEGATIVE0.1-1.5 INDETERMINANT>1.5 POSITIVE . Pulse Oximetry: 09/23/2016 13:59 O2 saturation: 96%. PROGRESS AND PROCEDURES Course of Care: PT was worked up and found to have pneumonia worsened since her last admission. She was treated with abx for nosocomial pneumonia, and I felt she should be admitted to the hospital. Discussed case with hospitalist, (Torsten). Reviewed test results and need for additional work-up. Agreed upon treatment plan and decision to admit. Health care provider will see patient in ED. Patient and family counseled in person regarding the patient's stable but serious condition, test results, diagnosis and need for admission. Concerns were addressed. Old medical records reviewed. Disposition: Admitted to Acute Care. Condition: stable and serious. CLINICAL IMPRESSION Bacterial pneumonia. (possibly hospital-acquired). (Electronically signed by Sarah Fuentes MD 09/28/2016 22:02)
--- NOTE | 2016-09-23 18:47 | History & Physical Report ---
Information Source Information Source: Self Reliability: Good History Chief Complaint general malaise History of Present Illness Patient is a 76 year old female that presented last week with swollen legs. Patient was seen for possible CHF exacerbation howeve the patient did not have any results of the aforementioned. Patient was additionally seen to have questionable infiltrates and the patient was started on treatment for pneumonia. Once patients white blood cell count and her breathing improved patient was subsequently discharged. Upon arriving home, patient completed her course of antibiotics, however the patient was noticing that she was having progressively worsening malaise. Patient felt flushed and warm at home, and had subjective fevers. Patient continued to worsen and decided to come to the hospital when things did not improve. Patient is currently stable however does not feel. Patient History 1. Pneumonia 2. Diabetes mellitus 3. Congestive heart failure (CHF) 4. Hypertension 5. Pneumonia Social History She does not smoke. No alcohol use. No recreational drug use. She lives with her daughter. CODE STATUS IS DNR. Medications and Allergies Medications Home Medications 1. Lantus insulin 20 units twice daily. 2. Lisinopril 10 mg daily. 3. Aspirin 81 mg daily. 4. Percocet 1 p.o. q.6 hours p.r.n. pain. 5. Metformin 500 twice daily. Current Medications Sig/Pedro Start time Last Medication Dose Route Stop Time Status Admin Amlodipine Besylate 5 MG DAILY 09/24 899 UNV PO Aspirin 81 MG DAILY 09/24 899 UNV PO Azithromycin 250 MG DAILY@09/24 UNV PO Pantoprazole Sodium 40 MG DAILY@09/24 06 UNV Sesquihydrate PO Gabapentin 400 MG TID 09/23 2199 UNV PO Insulin Glargine 20 UNITS BID 09/23 2099 UNV SC Metoclopramide HCl 5 MG BID 09/23 2099 UNV PO Metoprolol Tartrate 25 MG BID 09/23 2099 UNV PO Acetaminophen 650 MG Q6H PRN 09/23 1844 UNV PO Hydromorphone HCl 1 MG Q4H PRN 09/23 1844 UNV IV Oxycodone/ 1 TAB BID PRN 09/23 1844 UNV Acetaminophen PO Hydromorphone HCl See Dose ONCE PRN 09/23 1800 AC Insts (1) IV 09/23 2199 Dose Instructions: (1)Hydromorphone HCl: 0.5-1 MG Allergies Coded Allergies: Ibuprofen (09/18/16) Penicillins (09/18/16) Review of Systems Constitutional Fever, Chills, Weakness, Malaise. Denies: Sweats, Other. Eyes Denies: Pain, Vision Change, Conjunctival Inflammation, Eyelid Inflammation, Redness, Other. ENT Denies: Ear Pain, Ear Discharge, Nose Pain, Nasal Discharge, Nasal Congestion, Mouth Pain, Mouth Swelling, Throat Pain, Throat Swelling, Other. Respiratory Denies: Cough, Dry, SOB w/exertion, Wheezing, Hemoptysis, Pleuritic Pain, Sputum , Other. Cardiovascular Denies: Chest Pain, Palpitations, Orthopnea, PND, Edema, Light-headedness, Other. Gastrointestinal Denies: Nausea, Vomiting, Abdominal Pain, Diarrhea, Constipation, Melena, Hematochezia, Other. Genitourinary Denies: Dysuria, Frequency, Incontinence, Hematuria, Retention, Other. Musculoskeletal Denies: Neck Pain, Shoulder Pain, Arm Pain, Back Pain, Hand Pain, Leg Pain, Foot Pain, Other. Skin Denies: Rash, Lesions, Jaundice, Bruising, Other. Neurological Denies: Weakness, Numbness, Incoordination, Change in speech, Confusion, Seizures, Other. Physical Exam General Appearance Alert, Oriented X3, No acute distress HEENT Atraumatic, EOMI, Moist mucous membranes Lungs Normal air movement Neck Supple, No JVD, No masses Cardiovascular Normal S1 and S2, No murmurs, gallops, rubs Abdomen Soft, No tenderness, No rebound Extremities No edema, Normal pulses, No tenderness Skin No Breakdown, No Significant Lesions Neurological Normal speech, Normal tone, Cranial nerves intact, Strength 5/5 x4 ext's, No lateralizing signs Psych/Mental Status Mood normal LAB Results Laboratory Tests 09/23 09/23 09/23 1420 1421 1435 Chemistry Plasma Sodium (136 - 145 mmol/L) 138 Plasma Potassium (3.5 - 5.1 mmol/L) 3.9 Plasma Chloride (98 - 107 mmol/L) 103 CO2 (Enzymatic) (21 - 32 mmol/L) 26 BUN (7 - 18 mg/dL) 9 Creatinine (0.6 - 1.3 mg/dL) 0.6 Est GFR ( Amer) (mL/min) >60 Est GFR (Non-Af Amer) (mL/min) >60 Glucose (70 - 110 mg/dL) 310 Plasma Calcium (8.5 - 10.1 mg/dL) 8.3 Plasma Magnesium (1.8 - 2.4 mg/dL) 2.3 Total Bilirubin (0.0 - 1.0 mg/dL) 0.2 AST (15 - 37 U/L) 16 ALT (12 - 78 U/L) 19 Alkaline Phosphatase (46 - 116 U/L) 118 Creatine Kinase (24 - 260 U/L) 56 Troponin (0.00 - 1.5 ng/mL) <0.05 B-Natriuretic Peptide (5 - 100 pg/ml) 1080 Total Protein (6.4 - 8.2 g/dL) 7.1 Albumin (3.3 - 5.0 g/dL) 2.5 Hematology WBC (4.5 - 11.5 K/uL) Cancelled 7.6 RBC (4.00 - 5.20 M/uL) Cancelled 4.12 Hgb (12.0 - 16.0 gm/dL) Cancelled 11.7 Hct (36.0 - 46.0 %) Cancelled 35.5 MCV (80 - 100 fL) Cancelled 86 MCH (26 - 34 pg) Cancelled 28 RDW (11.6 - 14.8 %) Cancelled 13.3 Neut % (Auto) (50 - 75 %) 68.0 Lymph % (Auto) (25 - 40 %) 21.7 Wilkin % (Auto) (3 - 14 %) 6.2 Eos % (Auto) (0 - 4 %) 3.0 Baso % (Auto) (0 - 2 %) 1.1 Plt Count, EDTA (150 - 400 K/uL) Cancelled 459 PUBS MCHC (31 - 37 g/dL) Cancelled 33 04/07 1500 Urines Urine Color YELLOW Urine Appearance CLEAR Urine pH (5.0 - 8.0) 7.0 Ur Specific [place] (1.010 - 1.030) 1.010 Urine Protein (NEGATIVE) NEGATIVE Urine Ketones (NEGATIVE) NEGATIVE Urine Blood (NEGATIVE) NEGATIVE Urine Nitrite (NEGATIVE) NEGATIVE Urine Bilirubin (NEGATIVE) NEGATIVE Urine Urobilinogen (0.2 - 1.0 EU/dL) 0.2 Ur Leukocyte Esterase (NEGATIVE) NEGATIVE Urine RBC (0 - 1 rbc/hpf) 0-1 Urine WBC (0 - 1 wbc/hpf) 0-1 Ur Epithelial Cells (0 - 5 EPI/hpf) NONE SEEN Urine Bacteria (NONE SEEN) NONE SEEN Urine Glucose (NEGATIVE) 3+ Urine Comment CULT NOT INDICATED Microbiology Date/Time Procedure - Status Source Growth 09/23 1710 Blood Culture - RECD BLOOD 09/23 1540 Blood Culture - RECD BLOOD Assessment and Plan Problem List 1. Pneumonia Plan - pt has evidence of bilateral pneumonia - no significant resolution since last admission and infact spread to the contralateral lung - will initiate vancomycin and cefepime - will monitor cbc 2. Congestive heart failure (CHF) Plan - Pt has evidence of increased bnp and bibasilar effusions - no other signs of chf - will continue to trend daily - if no improvement patient will need to be on a diuretic - echo from earlier this week was appropriate 3. Diabetes mellitus Status Chronic Onset Date Unknown Plan - pt is a known diabetic - takes lantus 20 units bid - will continue with home lantus dose - sliding scale coverage 4. Chronic back pain Status Chronic Onset Date Unknown Plan - will monitor - currently well controlled with pain medicaiton given 5. Hypertension Status Chronic Onset Date Unknown Plan - will continue with home dose of anti-hypertensives - will trend bp
[2016-09-23 18:52] VITALS: BP 124/58
[2016-09-23] MEDS ORDERED: LOPRESSOR25 MG PO (19:05)
[2016-09-23] MEDS ORDERED: METOCLOPRAMIDE10 M1 PO (19:07)
[2016-09-23 22:53] VITALS: BP 127/55
[2016-09-24 02:04] VITALS: BP 122/58
[2016-09-24 06:42] VITALS: BP 124/57
[2016-09-24 10:38] VITALS: BP 127/61
[2016-09-24 14:34] VITALS: BP 137/66
[2016-09-24 18:28] VITALS: BP 123/62
--- NOTE | 2016-09-24 19:00 | Progress Note ---
Subjective General Pt seen and examined. Patient has no complaints at the moment. Patient still has general malaise Constitutional Weakness, Malaise. Denies: Fever, Chills, Sweats, Other. Eyes Denies: Pain, Vision Change, Conjunctival Inflammation, Eyelid Inflammation, Redness, Other. ENT Denies: Ear Pain, Ear Discharge, Nose Pain, Nasal Discharge, Nasal Congestion, Mouth Pain, Mouth Swelling, Throat Pain, Throat Swelling, Other. Respiratory Denies: Cough, Dry, SOB w/exertion, Wheezing, Hemoptysis, Pleuritic Pain, Sputum , Other. Cardiovascular Denies: Chest Pain, Palpitations, Orthopnea, PND, Edema, Light-headedness, Other. Gastrointestinal Denies: Nausea, Vomiting, Abdominal Pain, Diarrhea, Constipation, Melena, Hematochezia, Other. Genitourinary Denies: Dysuria, Frequency, Incontinence, Hematuria, Retention, Other. Musculoskeletal Back Pain. Denies: Neck Pain, Shoulder Pain, Arm Pain, Hand Pain, Leg Pain, Foot Pain, Other. Skin Denies: Rash, Lesions, Jaundice, Bruising, Other. Neurological Denies: Weakness, Numbness, Incoordination, Change in speech, Confusion, Seizures, Other. Physical Exam Vital Signs / I&Os Vital Signs Date Time Temp Pulse Resp B/P Pulse O2 O2 Flow FiO2 Ox Delivery Rate 09/24 1828 98.4 84 19 123/62 97 Nasal 2.0 Cannula 09/24 1434 98.1 84 19 137/66 98 Nasal 2.0 Cannula 09/24 1038 98.2 76 19 127/61 97 Nasal 2.0 Cannula 09/24 1017 2.0 09/24 0800 Nasal 2.5 Cannula 09/24 0642 98.6 82 19 124/57 96 Nasal 2.0 Cannula 09/24 0204 98.6 80 18 122/58 96 Nasal 2.0 Cannula 09/23 2253 98.2 79 18 127/55 94 Nasal 2.0 Cannula 09/23 2024 Nasal 2.0 Cannula I&O 09/23 0800 09/23 1600 09/24 0000 Intake Total Output Total 300 Balance -300 General Appearance Alert, Oriented X3, No acute distress Lungs Clear to auscultation, Normal air movement Cardiovascular Regular rate and rhythm, Normal S1 and S2, No murmurs, gallops, rubs Abdomen Soft, No tenderness, No guarding, No hepatosplenomegaly Extremities No cyanosis, No edema, Normal pulses, No tenderness, Strength = upper ext's, Strength = lower ext's Neurological Normal speech, Normal tone, Cranial nerves intact, Strength 5/5 x4 ext's, No lateralizing signs Psych/Mental Status Mood normal LAB Results Laboratory Tests 09/24 09/24 0529 0537 Chemistry Plasma Sodium (136 - 145 mmol/L) 139 Plasma Potassium (3.5 - 5.1 mmol/L) 3.6 Plasma Chloride (98 - 107 mmol/L) 104 CO2 (Enzymatic) (21 - 32 mmol/L) 27 BUN (7 - 18 mg/dL) 8 Creatinine (0.6 - 1.3 mg/dL) 0.5 Est GFR ( Amer) (mL/min) >60 Est GFR (Non-Af Amer) (mL/min) >60 Glucose (70 - 110 mg/dL) 153 Plasma Calcium (8.5 - 10.1 mg/dL) 8.3 Plasma Magnesium (1.8 - 2.4 mg/dL) 2.2 Total Bilirubin (0.0 - 1.0 mg/dL) 0.3 AST (15 - 37 U/L) 13 ALT (12 - 78 U/L) 15 Alkaline Phosphatase (46 - 116 U/L) 86 Total Protein (6.4 - 8.2 g/dL) 6.7 Albumin (3.3 - 5.0 g/dL) 2.4 Procalcitonin (0 - 0.5 ng/mL) <0.5 Hematology WBC (4.5 - 11.5 K/uL) 8.3 RBC (4.00 - 5.20 M/uL) 3.97 Hgb (12.0 - 16.0 gm/dL) 11.3 Hct (36.0 - 46.0 %) 34.1 MCV (80 - 100 fL) 86 MCH (26 - 34 pg) 29 RDW (11.6 - 14.8 %) 13.4 Neut % (Auto) (50 - 75 %) 66.2 Lymph % (Auto) (25 - 40 %) 22.1 [place] % (Auto) (3 - 14 %) 6.2 Eos % (Auto) (0 - 4 %) 5.1 Baso % (Auto) (0 - 2 %) 0.4 Plt Count, EDTA (150 - 400 K/uL) 451 PUBS MCHC (31 - 37 g/dL) 33 Microbiology Date/Time Procedure - Status Source Growth 09/23 2009 Influenza Screen - COMP NASALPHAR Assessment and Plan Problem List 1. Pneumonia Plan - pt has evidence of patchy infiltrates on chest xray - will c.w hcap treatment - continue to trend electrolytes and cbc 2. Chronic back pain Status Chronic Onset Date Unknown Plan - pt has adequate pain control -advised not to lie in bed all day 3. Diabetes mellitus Status Chronic Onset Date Unknown Plan - will continue with sliding scale coverage - will monitor with carb consistent diet 4. CHF exacerbation Plan - elevated bnp compared to last echocardiogram - no evidence of chf symptoms - most likely elevation secondary to vascular congestion in the lung field - repeat value once patient improves - last echocardiogram is appropriate
--- NOTE | 2016-09-24 19:14 | Progress Note ---
Subjective General Advance care Plan Pt is a 76 year old female presenting with pneumonia, pt has a past medical history of diabetes and hypertension. For the history of present illness please refer to my H&P A discussion was undertaken with the patient regarding previous advance care directives. Advance directives 1. Living will: no 2. POLST: no 3. Code status: No code 4. DUrable power of assembly member: Yes 5. Donor Card: No The patient has expressed that she will not want to pursue any forms of resusciatation at this time, including cpr, mechanical ventilation, electrical cardioversio, or medical life sustaining efforts.
--- NOTE | 2016-09-24 19:14 | Progress Note ---
Subjective General Advance care Plan Pt is a 76 year old female presenting with pneumonia, pt has a past medical history of diabetes and hypertension. For the history of present illness please refer to my H&P A discussion was undertaken with the patient regarding previous advance care directives. Advance directives 1. Living will: no 2. POLST: no 3. Code status: No code 4. DUrable power of elevator conductor: Yes 5. Donor Card: No The patient has expressed that she will not want to pursue any forms of resusciatation at this time, including cpr, mechanical ventilation, electrical cardioversio, or medical life sustaining efforts.
[2016-09-24 23:22] VITALS: BP 125/66
[2016-09-25 02:20] VITALS: BP 128/66
[2016-09-25 07:12] VITALS: BP 127/71
[2016-09-25 10:58] VITALS: BP 130/70
[2016-09-25 14:13] VITALS: BP 135/73
--- NOTE | 2016-09-25 17:07 | Progress Note ---
Subjective General 76-year-old female admitted with ongoing malaise with chest x- ray showing persistent pneumonia and somewhat different areas. Echocardiogram shows no evidence of decline in ejection fraction though there may be significant diastolic dysfunction. Patient is generally feeling quite a bit better and is thinking she might want to go home today. She is on cephapirin and vancomycin. Other significant problems adult-onset diabetes. She also has chronic back pain issues. Constitutional Weakness (feels weak), Malaise (feels achy but somewhat improv). ENT Denies: Other (no ear nose or throat problems). Respiratory Cough (slight cough.), SOB w/exertion (slight shortness of breath wit), Other ( his breathing is improving). Denies: Wheezing, Hemoptysis, Pleuritic Pain, Sputum. Cardiovascular Denies: Chest Pain, Palpitations, PND, Edema. Gastrointestinal Denies: Nausea, Vomiting, Abdominal Pain, Constipation. Genitourinary Denies: Dysuria, Frequency, Incontinence. Musculoskeletal Back Pain (desires increase in oxycodone). Skin Denies: Rash, Lesions. Neurological Weakness (mild weakness.). Physical Exam Vital Signs / I&Os Vital Signs Date Time Temp Pulse Resp B/P Pulse O2 O2 Flow FiO2 Ox Delivery Rate 09/25 1537 Room Air 09/25 1413 98.6 78 18 135/73 98 Room Air 09/25 1058 99.0 78 18 130/70 78 Nasal 2.0 Cannula 09/25 0712 98.4 78 18 127/71 99 Nasal 2.0 Cannula 09/25 0220 98.1 80 16 128/66 97 Nasal 2.0 Cannula 09/24 2322 98.2 71 16 125/66 99 Nasal 2.0 Cannula 09/24 2315 2.0 09/24 2126 Nasal 2.0 Cannula 09/24 1925 2.0 09/24 1828 98.4 84 19 123/62 97 Nasal 2.0 Cannula I&O 09/24 0800 09/24 1600 09/25 0000 Intake Total 671 450 Output Total 600 1500 1600 Balance -600 829 -1150 General Appearance Alert, Oriented X3, Cooperative, No acute distress HEENT Normal exam Lungs lungs are basically clear to auscultation with no pronounced wheezing or rhonchi or rales. I:E ratio is about 1-1. no significant coughing during exam. Cardiovascular Regular rate and rhythm, Normal S1 and S2, No murmurs, gallops, rubs Abdomen No tenderness, No guarding, No rebound, No masses Extremities trace edema. Pulses not easily felt. Temperature of the feet is normal and sensation is normal. Skin No Rashes, No Breakdown Neurological Normal speech, Normal tone, Cranial nerves intact, No lateralizing signs Psych/Mental Status Mental status normal, Mood normal Assessment and Plan Problem List 1. Pneumonia Status Acute Onset Date Unknown Plan Patient seems to be improving. Recheck chest x-ray tomorrow morning. Consider discharge if looking somewhat better. 2. Congestive heart failure (CHF) Plan Clinically patient is not showing evidence of congestive heart failure. Chest x -ray is ordered for tomorrow and BNP will be checked with tomorrow morning's lab. 3. Chronic back pain Status Chronic Onset Date Unknown Plan Patient complains of ongoing back pain. Will increase the oxycodone APAP to 1 tablet every 4 hours as needed for severe pain. 4. Diabetes mellitus Status Chronic Onset Date Unknown Plan Patient is continue with Lantus insulin at 20 units every 12 hours and is continuing with Humalog insulin before meals by sliding scale. She is having blood sugars in the low 100s to the low 200s and is generally stable. No changes will be made at this time.
[2016-09-25 18:53] VITALS: BP 150/78
[2016-09-26 00:20] VITALS: BP 127/59
[2016-09-26 03:21] VITALS: BP 102/53
--- NOTE | 2016-09-26 06:22 | DIAGNOSTIC IMAGING REPORT ---
PROCEDURE: XR CHEST 1 VIEW INDICATION: recheck pneumonia. Patient improving clinically. TECHNIQUE: Portable AP view 03:05 a.m. COMPARISON: Chest x-ray 09/23/2016 FINDINGS: Improved bilateral pneumonia with small residual infiltrates in both lung bases and left upper lobe. Heart and mediastinum are normal. Thorax is normal. IMPRESSION: 1. Improved bilateral pneumonia
[2016-09-26 06:59] VITALS: BP 128/56
--- NOTE | 2016-09-26 09:58 | Discharge Summary ---
Discharge Summary Report Admit Date 09/23/16 Discharge Date 09/26/16 Admission Diagnosis Pneumonia, chf history, DM,back pain chronic, hypertension Discharge Diagnosis Pneumonia, chf history, DM,back pain chronic, hypertension Brief History Patient is a 76 year old female that presented last week with swollen legs. Patient was seen for possible CHF exacerbation howeve the patient did not have any results of the aforementioned. Patient was additionally seen to have questionable infiltrates and the patient was started on treatment for pneumonia. Once patients white blood cell count and her breathing improved patient was subsequently discharged. Upon arriving home, patient completed her course of antibiotics, however the patient was noticing that she was having progressively worsening malaise. Patient felt flushed and warm at home, and had subjective fevers. Patient continued to worsen and decided to come to the hospital when things did not improve. Hospital Course Pneumonia- improved with antibiotics, change to oral meds clinda and cephalexin x 7 days chf history- echo with good EF done at hospital DM- stable overall back pain chronic- unchanged hypertension- stable General Appearance Alert, Cooperative HEENT oral pharynx clear Lungs coarse BS non focal Cardiovascular Regular Rate Abdomen Soft, No tenderness Skin No Rashes Neurological Normal speech Psych/Mental Status Mental status NL Lab/Imaging CXR: improved pneumonia from this am. Laboratory Tests 09/26 09/25 0520 1357 Chemistry B-Natriuretic Peptide (5 - 100 pg/ml) 145 Toxicology Vancomycin Trough (10.0 - 20.0 ug/mL) 8.0 Discharge Instructions/Meds Resume home meds. Take keflex, clinda for 7 days with home meds: 1. Lantus insulin 20 units twice daily. 2. Lisinopril 10 mg daily. 3. Aspirin 81 mg daily. 4. Percocet 1 p.o. q.6 hours p.r.n. pain. 5. Metformin 500 twice daily.
[2016-09-26] MEDS ORDERED: CLINDAMYCIN HC300 MG PO (10:01)
[2016-09-26] MEDS ORDERED: CEPHALEXIN500 MG PO (10:01)
--- NOTE | 2016-09-26 10:02 | Provider's Discharge Care Plan ---
Problem, Goal, Plan Problem List 1. Congestive heart failure (CHF) Instructions: Take meds as directed 2. Diabetes mellitus Instructions: Take meds as directed 3. Pneumonia Instructions: Follow up as directed, Take meds as directed 4. Hypertension Instructions: Take meds as directed
--- NOTE | 2016-09-28 22:02 | ED DISCHARGE INSTRUCTIONS ---
Patient: NARAYAN NUÑEZ General Instructions [facility] VisitID: [id number] [address] [place] [address] 76y, F Registration Date/Time: 09/23/2016 Bacterial pneumonia. (possibly hospital-acquired). (Electronically signed by Sarah Fuentes MD 09/28/2016 22:02)
--- NOTE | 2016-09-28 22:02 | ED MAR SUMMARY ---
..... Medication Administration Record [facility] [address] [place] [address] Patient: NARAYAN NUÑEZ Visit ID: [id number] 76y, F Weight: 70.7 kg Height/Length: 62 in BMI: 28.5 ALLERGIES: Ibuprofen, Penicillin, Hydrocodone, NSAIDs Given 15:09 09/23/2016 Lien Davis R.N. Medication Administered: DILAUDID [IVP] (HYDROMORPHONE HCL PF), Dose: 0.5 mg IVP over 1 minute(s), Site: #1 left AC. Medication Ordered: Dilaudid IV 1 mg (HIGH ALERT MEDICATION, NOW). Start 16:50 09/23/2016 Lien Davis R.N., Stop 18:00 09/23/2016 Tara Mascorro R.N. Medication Administered: VANCOMYCIN [IVPB], Dose: 1 gm IVPB over 1 hour(s), Rate: 200 mL/hr, Dispensed: 200 mL bag, Site: #1 left AC. Medication Ordered: Vancomycin IV 1 gm/200mL (NOW). Given 17:28 09/23/2016 Lien Davis R.N. Medication Administered: PERCOCET [PO] (OXYCODONE-ACETAMINOPHEN), Dose: 1 tab 5/325 mg Tablets PO. Medication Ordered: Percocet PO 5/325 mg (HIGH ALERT MEDICATION, NOW). Start 18:16 09/23/2016 Tara Mascorro R.N., Stop 18:39 09/23/2016 Lien Davis R.N. Medication Administered: CEFEPIME [IVPB], Dose: 2 gm IVPB over 40 minute(s), Rate: 140 mL/hr, Dispensed: 100 mL bag, Site: #1 left AC. Medication Ordered: Cefepime IV 2 gm/50mL (NOW).
--- NOTE | 2016-09-28 22:02 | ED MED RECONCILIATION SUMMARY ---
Patient: NARAYAN NUÑEZ Medication Reconciliation Report [facility] VisitID: [id number] [address] [place] [address] 76y, F Registration Date/Time: 09/23/2016 Weight: 70.7 kg Height/Length: 62 in. BMI: 28.5 ALLERGIES: Hydrocodone, Ibuprofen, NSAIDs, Penicillin The patient's Home Medications are listed below: THE FOLLOWING MEDICATIONS NEED TO BE RECONCILED: AmLODIPine Besylate Oral 5 mg, daily Aspirin Oral (81 mg) Azithromycin Oral 250 mg, 5 day course Gabapentin Oral 300 mg, 3x a day, 1 tab TID Lantus Subcutaneous (100 unit/mL) 20 units, 2x a day Metoclopramide HCl Oral 10 mg, 2x a day, 1/2 tab twice a day Metoprolol Tartrate Oral 25 mg, BID Minerin External Omeprazole Oral 20 mg, daily Percocet Oral 5/325 mg, 3x a day, takes for Arthritis The source(s) of the original Home Medication information: patient The following Medications were given to the patient in the Emergency Department: Dilaudid [IVP] IVP 0.5 mg, administered: 09/23/2016 3:09:00 PM Vancomycin [IVPB] IVPB bolus 0, then 1 gm 200 mL/hr, administered: 09/23/2016 4:50:00 PM Percocet [PO] PO 1 tab, administered: 09/23/2016 5:28:00 PM Cefepime [IVPB] IVPB bolus 0, then 2 gm 140 mL/hr, administered: 09/23/2016 6:16:00 PM The following Medications were prescribed to the patient: None.
--- NOTE | 2016-09-28 22:02 | ED MED RECONCILIATION SUMMARY ---
Patient: NARAYAN NUÑEZ Medication Reconciliation Report [facility] VisitID: [id number] [address] [place] [address] 76y, F Registration Date/Time: 09/23/2016 Weight: 70.7 kg Height/Length: 62 in. BMI: 28.5 ALLERGIES: Hydrocodone, Ibuprofen, NSAIDs, Penicillin The patient's Home Medications are listed below: THE FOLLOWING MEDICATIONS NEED TO BE RECONCILED: AmLODIPine Besylate Oral 5 mg, daily Aspirin Oral (81 mg) Azithromycin Oral 250 mg, 5 day course Gabapentin Oral 300 mg, 3x a day, 1 tab TID Lantus Subcutaneous (100 unit/mL) 20 units, 2x a day Metoclopramide HCl Oral 10 mg, 2x a day, 1/2 tab twice a day Metoprolol Tartrate Oral 25 mg, BID Minerin External Omeprazole Oral 20 mg, daily Percocet Oral 5/325 mg, 3x a day, takes for Arthritis The source(s) of the original Home Medication information: patient The following Medications were given to the patient in the Emergency Department: Dilaudid [IVP] IVP 0.5 mg, administered: 09/23/2016 3:09:00 PM Vancomycin [IVPB] IVPB bolus 0, then 1 gm 200 mL/hr, administered: 09/23/2016 4:50:00 PM Percocet [PO] PO 1 tab, administered: 09/23/2016 5:28:00 PM Cefepime [IVPB] IVPB bolus 0, then 2 gm 140 mL/hr, administered: 09/23/2016 6:16:00 PM The following Medications were prescribed to the patient: None.
--- NOTE | 2016-09-28 22:02 | ED DISCHARGE INSTRUCTIONS ---
Patient: NARAYAN NUÑEZ General Instructions [facility] VisitID: [id number] [address] [place] [address] 76y, F Registration Date/Time: 09/23/2016 Bacterial pneumonia. (possibly hospital-acquired). (Electronically signed by Sarah Fuentes MD 09/28/2016 22:02)
--- NOTE | 2016-09-28 22:02 | ED MAR SUMMARY ---
..... Medication Administration Record [facility] [address] [place] [address] Patient: NARAYAN NUÑEZ Visit ID: [id number] 76y, F Weight: 70.7 kg Height/Length: 62 in BMI: 28.5 ALLERGIES: Ibuprofen, Penicillin, Hydrocodone, NSAIDs Given 15:09 09/23/2016 Lien Davis R.N. Medication Administered: DILAUDID [IVP] (HYDROMORPHONE HCL PF), Dose: 0.5 mg IVP over 1 minute(s), Site: #1 left AC. Medication Ordered: Dilaudid IV 1 mg (HIGH ALERT MEDICATION, NOW). Start 16:50 09/23/2016 Lien Davis R.N., Stop 18:00 09/23/2016 Tara Mascorro R.N. Medication Administered: VANCOMYCIN [IVPB], Dose: 1 gm IVPB over 1 hour(s), Rate: 200 mL/hr, Dispensed: 200 mL bag, Site: #1 left AC. Medication Ordered: Vancomycin IV 1 gm/200mL (NOW). Given 17:28 09/23/2016 Lien Davis R.N. Medication Administered: PERCOCET [PO] (OXYCODONE-ACETAMINOPHEN), Dose: 1 tab 5/325 mg Tablets PO. Medication Ordered: Percocet PO 5/325 mg (HIGH ALERT MEDICATION, NOW). Start 18:16 09/23/2016 Tara Mascorro R.N., Stop 18:39 09/23/2016 Lien Davis R.N. Medication Administered: CEFEPIME [IVPB], Dose: 2 gm IVPB over 40 minute(s), Rate: 140 mL/hr, Dispensed: 100 mL bag, Site: #1 left AC. Medication Ordered: Cefepime IV 2 gm/50mL (NOW).
== END 2016-09-26 12:40 | disposition home or self-care (01) | DRG 195 ==
LOC: ED SRH 13:52 → CC SRH 17:21 → ACUTE2 SRH 17:21 → TRANS SRH 17:21 → CC SRH 18:55 → ACUTE2 SRH 09-24 21:21
PROVIDERS: ADMIT Internal Medicine
DX: J18.9 Pneumonia, unspecified organism (principal); E11.9 Type 2 diabetes mellitus without complications; I11.0 Hypertensive heart disease with heart failure; I50.9 Heart failure, unspecified; Z79.4 Long term (current) use of insulin; G89.29 Other chronic pain
CPT/HCPCS: 85241; 90004; 90065; 90074; 90098; 90100; 90616; 91320; 91400; 91583; 92610; 92720; 93004; 95059

== ENCOUNTER 2016-11-05 09:06 | Emergency (ER) | payer OTHER ==
[~2016-11-05 09:06] MED LIST changes: +CEPHALEXIN500 MG PO; +CLINDAMYCIN HC300 MG PO; +METOCLOPRAMIDE10 M1 PO
--- NOTE | 2016-11-05 10:31 | ED ORDER SUMMARY ---
..... Patient: NARAYAN NUÑEZ OrderSheet [facility] VisitID: [id number] [address] [place] [address] 76y, F Registration Date/Time: 11/05/2016 ORDER SHEET Weight: 61.2 kg (stated) Allergies: Hydrocodone, Ibuprofen, NSAIDs, Penicillin GENERAL ORDERS: MEDICATION ORDERS: Demerol IM 50 mg (HIGH ALERT MEDICATION, NOW) (09:49 11/05/2016 Darian Garcia) (Ack 9:52 Nito R.N.) (Ack 9:52 Jaziel R.NVicki) (9:58 Nito R.N.) IV FLUIDS: ORDER SHEET NOTES: [Electronically signed by Aleta Philippe R.N. (11:03 11/05/2016)] [Electronically signed by Jabari Lala Dr. (11:10 11/05/2016)] [Electronically locked/signed by Aleta Philippe R.N. (11:03 11/05/2016)]
--- NOTE | 2016-11-05 10:31 | ED CLINICAL REPORT ---
Clinical Report - Physicians/Mid Levels [facility] [address] [place] [address] 11/05/2016 9:08 Patient: NARAYAN NUÑEZ Time Seen: 09:17; initial patient contact. Arrived- By private vehicle. Historian- patient. HISTORY OF PRESENT ILLNESS Chief Complaint: Injury to right and left leg. The injury happened several months ago. (Unk). Injury secondary to other mechansim (unk). Patient is experiencing moderate pain. Patient denies injury to the head or neck. REVIEW OF SYSTEMS No swelling, tingling, weakness, numbness or skin laceration. No calf pain, chest pain, difficulty breathing or pedal edema. She has had joint pain, but no pain on weight bearing. All systems otherwise negative, except as recorded above. PAST HISTORY ( Hypoxia. Leukocytosis. Abnormal Liver Function Test. Pneumonia. Congestive Heart Failure. Arthritis. Chronic Back Pain. Diabetes Mellitus. ADDITIONAL SURGERIES: Back Surgery. Cholecystectomy.). SOCIAL HISTORY Never smoker. No alcohol use or drug use. ADDITIONAL NOTES The nursing notes have been reviewed. PHYSICAL EXAM Vital Signs: 11/05/2016 09:19 BP: 163/92. HR: 105. RR: 16. O2 saturation: 100%. Temp: 98.1 F. Pain level now: 10/10. Have been reviewed. Hypertensive. Tachycardic. Respiratory rate normal. Temperature normal. Oxygen saturation normal. Appearance: Alert. Oriented X3. No acute distress. CVS: Normal heart rate and rhythm. Heart sounds normal. Pulses normal. Pulses: right dorsalis pedis 2+, left dorsalis pedis 2+, right posterior tibial 2+ and left posterior tibial 2+. Respiratory: No respiratory distress. Breath sounds normal. Skin: Skin intact. Skin warm and dry. Normal skin color. Extremities: (Generalized tenderness to light touch.). Extremities otherwise negative. Neuro, Vascular and Tendons: Vascular status intact. Sensation intact. Motor intact. Tendon function intact. Gait: Normal gait. Neuro: Oriented X 3. No motor deficit. PROGRESS AND PROCEDURES Course of Care: Demerol 50 mg IM given. Pt is currently only on Gabapentin 300 TID and has been on this dose for some time. Physical exam findings are improved. Symptoms better. Disposition: Discharged home in good and improved condition. Condition: good. CLINICAL IMPRESSION Neuropathy associated with diabetes type 2. INSTRUCTIONS Your Current Medications: CHANGE THE FOLLOWING MEDICATIONS TO: Gabapentin Oral : 300 mg 3x a day, 2 tab TID. CONTINUE TAKING THE FOLLOWING MEDICATIONS: AmLODIPine Besylate Oral : 5 mg daily. Aspirin Oral : Tablet Chewable 81 mg. Azithromycin Oral : 250 mg, 5 day course. Lantus Subcutaneous : Solution 100 unit/mL, 20 units 2x a day. Metoclopramide HCl Oral : 10 mg 2x a day, 1/2 tab twice a day. Metoprolol Tartrate Oral : 25 mg BID. Minerin External. Omeprazole Oral : 20 mg daily. Percocet Oral : 5/325 mg 3x a day, takes for Arthritis. Prescription Medications: Demerol 50 mg: take 1 tablet orally every 6 hours as needed for pain. Dispense fifteen (15). Substitution is permissible. Gabapentin 300 mg capsules: take 2 orally every 8 hours. Dispense forty-five (45). No refill. Follow-up: Follow up with your doctor in about two days. Call for an appointment. Blood pressure screening was not performed during this visit because the patient has an active diagnosis of hypertension. (Electronically signed by Jabari Lala Dr. 11/05/2016 11:10)
--- NOTE | 2016-11-05 10:31 | ED ORDER SUMMARY ---
..... Patient: NARAYAN NUÑEZ OrderSheet [facility] VisitID: [id number] [address] [place] [address] 76y, F Registration Date/Time: 11/05/2016 ORDER SHEET Weight: 61.2 kg (stated) Allergies: Hydrocodone, Ibuprofen, NSAIDs, Penicillin GENERAL ORDERS: MEDICATION ORDERS: Demerol IM 50 mg (HIGH ALERT MEDICATION, NOW) (09:49 11/05/2016 Darian Garcia) (Ack 9:52 Nito R.N.) (Ack 9:52 Jaziel R.NVicki) (9:58 Nito R.N.) IV FLUIDS: ORDER SHEET NOTES: [Electronically signed by Aleta Philippe R.N. (11:03 11/05/2016)] [Electronically signed by Jabari Lala Dr. (11:10 11/05/2016)] [Electronically locked/signed by Aleta Philippe R.N. (11:03 11/05/2016)]
--- NOTE | 2016-11-05 10:31 | ED NURSING NOTES ---
Clinical Report - Nurses [facility] [address] [place] [address] 11/05/2016 9:08 Patient: NARAYAN NUÑEZ TRIAGE Triage time 09:20. Acuity: LEVEL 3. Chief Complaint: RIGHT LOWER EXTREMITY PAIN. LEFT LOWER EXTREMITY PAIN. 09:23 11/05/16. Alert. SEPSIS SCREEN: Sepsis Screen: negative. Negative (no infection suspected/documented). --: Justin Correa R.N. 09:19 11/05/16. BP: 163/92 (regular adult cuff) taken on the left arm, via an automated monitor, while lying. HR: 105 (normal rate). RR: 16 (regular, unlabored and normal). O2 saturation: 100% on room air. Temp: 98.1 F (oral). Pain level now: 03/28. --: Justin Correa R.N. Weight: 61.2 kg stated. Height/Length: 60.7 inches Per Patient. BMI: 25.8. --: Justin Correa R.N. Medications AmLODIPine Besylate Oral 5 mg, daily. Aspirin Oral (Tablet Chewable 81 mg). Azithromycin Oral 250 mg (5 day course). Gabapentin Oral 300 mg, 3x a day (1 tab TID). Lantus Subcutaneous (Solution 100 unit/mL) 20 units, 2x a day. Metoclopramide HCl Oral 10 mg, 2x a day (1/2 tab twice a day). Metoprolol Tartrate Oral 25 mg, BID. Minerin External. Omeprazole Oral 20 mg, daily. Percocet Oral 5/325 mg, 3x a day (takes for Arthritis). --: Justin Correa R.N. Medication/allergy information source: the patient. --: Justin Correa R.N. Allergies Hydrocodone. (GI Intolerance/Abdominal Pain) Ibuprofen. NSAIDs. (GI Intolerance) Penicillin. --: Justin Correa R.N. History Arrived by private vehicle. Historian: patient. Accompanied by family. Primary physician ([facility] in [place]). ( Has been having pain in both legs for months, last night pain was worst ever. Was recently prescribed Gabapentin 2 weeks ago for neuropathy in legs; says it is not helping.). This occurred (Ongoing for months.). SOCIAL HX: Never smoker. No alcohol use or drug use. She has not traveled outside the [place] The patient was not exposed to MRSA. ABUSE ASSESSMENT: Abuse assessment: The patient was asked "Do you feel safe in your home?" and "Has anyone hurt you or threatened to hurt you?". No report of abuse. SELF HARM ASSESSMENT: A self harm assessment was performed. The patient answered "no" to the question "Do you have thoughts of harming or killing yourself?" and "Have you recently had thoughts about harming or killing others?". FALL RISK ASSESSMENT: Fall risk assessment completed. No fall risk identified. NUTRITIONAL RISK ASSESSMENT: The nutritional risk assessment revealed no deficiencies. FUNCTIONAL ASSESSMENT: Functional assessment: no impairments noted. LEARNING NEEDS ASSESSMENT: The learning needs assessment revealed no barriers. SKIN INTEGRITY ASSESSMENT: Skin integrity risk assessment completed. No skin integrity risk identified. -- Justin Correa R.N. PROBLEMS: Hypoxia. Leukocytosis. Abnormal Liver Function Test. Pneumonia. Congestive Heart Failure. Arthritis. Chronic Back Pain. Diabetes Mellitus. -- Justin Correa R.N. ADDITIONAL SURGERIES: Back Surgery. Cholecystectomy. -- Justin Correa R.N. Assessment GENERAL / NEURO / PSYCH: Alert. Oriented X 4. Appears in pain. Brianna Coma Scale: 15- eyes open spontaneously (4); best verbal response- oriented x 4 (5); best motor response- obeys commands (6). Patient appears calm and cooperative. RESPIRATORY: No respiratory distress. Respirations not labored. SKIN: Skin is warm and dry. -- Justin Correa R.N. Interventions ID band on patient. To treatment room. --: Justin Correa R.N. PHYSICAL ASSESSMENT 10:40 FIRST CONTACT WITH PT. --11:01 Aleta Philippe R.N. 10:40. GENERAL / NEURO / PSYCH: Oriented X 4. Alert. SKIN: Skin intact. Skin is warm and dry. --11:02 Aleta Philippe R.N. NURSING PROGRESS NOTES The initial plan of care for this patient has been created This plan of care was discussed with the patient. Patient gowned. Warming measures: blanket applied. Reassurance given to the patient. Two patient identifiers checked. Call light placed in reach. Side rails up x 2. Bed placed in lowest position. Brakes of bed on. Patient ready for evaluation- ED physician notified. --09:23 Justin Correa R.N. 09:58 11/05/2016 Demerol (Meperidine HCl) IM 50 mg given. Given in the right gluteus ann. Allergies verified, confirmed 5 rights and sedative warning given to the patient. --09:58 Mandy Navarrete R.N. 10:40. The patient is calm. Overall patient status is improved- she states feels better. GENERAL / NEURO / PSYCH: Alert. Oriented X 4. RESPIRATORY: No respiratory distress. SKIN: Skin is warm and dry. --11:01 Aleta Philippe R.N. DISPOSITION / DISCHARGE Departure time: 1040. Condition at departure: stable. Fall risk assessment completed. Risk factors identified include severe pain and patient impairment of mobility. No learning barriers present. Discharge instructions provided and reviewed with the patient. Reviewed medication(s). Prescription(s) given to the patient. Patient verbalized understanding. Written instructions provided in Luxem[place]ish. The patient was discharged home and accompanied by family. She left the Emergency Department in a wheelchair and via private vehicle. Family member driving. --10:53 Aleta Philippe R.N. <<STRICKEN ENTRY-- 10:40 11/05/16. BP: 158/90. HR: 95. RR: 1. O2 saturation: 100% on room air. Pain level now: 10/26. --10:53 Aleta Philippe R.N. --END STRIKE>> Change to Details. --10:53 Aleta Philippe R.N. 10:40 11/05/16. BP: 158/90. HR: 95. RR: 16. O2 saturation: 100% on room air. Temp: 98 F (oral). Pain level now: 10/26. --11:00 Aleta Philippe R.N. Locked/Released at 11/05/2016 11:03 by Aleta Philippe R.N.
--- NOTE | 2016-11-05 11:10 | ED MED RECONCILIATION SUMMARY ---
Patient: NARAYAN NUÑEZ Medication Reconciliation Report [facility] VisitID: [id number] [address] [place] [address] 76y, F Registration Date/Time: 11/05/2016 Weight: 61.2 kg Height/Length: 60 in. BMI: 25.8 ALLERGIES: Hydrocodone, Ibuprofen, NSAIDs, Penicillin The patient's Home Medications are listed below: CHANGE THE FOLLOWING MEDICATIONS TO: Gabapentin Oral : 300 mg 3x a day, 2 tab TID CONTINUE TAKING THE FOLLOWING MEDICATIONS: AmLODIPine Besylate Oral 5 mg, daily Aspirin Oral (81 mg) Azithromycin Oral 250 mg, 5 day course Lantus Subcutaneous (100 unit/mL) 20 units, 2x a day Metoclopramide HCl Oral 10 mg, 2x a day, 1/2 tab twice a day Metoprolol Tartrate Oral 25 mg, BID Minerin External Omeprazole Oral 20 mg, daily Percocet Oral 5/325 mg, 3x a day, takes for Arthritis The source(s) of the original Home Medication information: patient The following Medications were given to the patient in the Emergency Department: Demerol [IM] IM 50 mg, administered: 11/05/2016 9:58:00 AM The following Medications were prescribed to the patient: Demerol 50 mg: take 1 tablet orally every 6 hours as needed for pain. Dispense fifteen (15). Substitution is permissible. -- Jabari Lala Dr. Gabapentin 300 mg capsules: take 2 orally every 8 hours. Dispense forty-five (45). No refill. -- Jabari Lala Dr.
--- NOTE | 2016-11-05 11:10 | ED MED RECONCILIATION SUMMARY ---
Patient: NARAYAN NUÑEZ Medication Reconciliation Report [facility] VisitID: [id number] [address] [place] [address] 76y, F Registration Date/Time: 11/05/2016 Weight: 61.2 kg Height/Length: 60 in. BMI: 25.8 ALLERGIES: Hydrocodone, Ibuprofen, NSAIDs, Penicillin The patient's Home Medications are listed below: CHANGE THE FOLLOWING MEDICATIONS TO: Gabapentin Oral : 300 mg 3x a day, 2 tab TID CONTINUE TAKING THE FOLLOWING MEDICATIONS: AmLODIPine Besylate Oral 5 mg, daily Aspirin Oral (81 mg) Azithromycin Oral 250 mg, 5 day course Lantus Subcutaneous (100 unit/mL) 20 units, 2x a day Metoclopramide HCl Oral 10 mg, 2x a day, 1/2 tab twice a day Metoprolol Tartrate Oral 25 mg, BID Minerin External Omeprazole Oral 20 mg, daily Percocet Oral 5/325 mg, 3x a day, takes for Arthritis The source(s) of the original Home Medication information: patient The following Medications were given to the patient in the Emergency Department: Demerol [IM] IM 50 mg, administered: 11/05/2016 9:58:00 AM The following Medications were prescribed to the patient: Demerol 50 mg: take 1 tablet orally every 6 hours as needed for pain. Dispense fifteen (15). Substitution is permissible. -- Jabari Lala Dr. Gabapentin 300 mg capsules: take 2 orally every 8 hours. Dispense forty-five (45). No refill. -- Jabari Lala Dr.
--- NOTE | 2016-11-05 11:10 | ED MAR SUMMARY ---
..... Medication Administration Record [facility] [address] [place] [address] Patient: NARAYAN NUÑEZ Visit ID: [id number] 76y, F Weight: 61.2 kg Height/Length: 60.7 in BMI: 25.8 ALLERGIES: Hydrocodone, Ibuprofen, NSAIDs, Penicillin Given 09:58 11/05/2016 Mandy Navarrete RVickiNVicki Medication Administered: DEMEROL [IM] (MEPERIDINE HCL), Dose: 50 mg IM. Medication Ordered: Demerol IM 50 mg (HIGH ALERT MEDICATION, NOW).
--- NOTE | 2016-11-05 11:10 | ED DISCHARGE INSTRUCTIONS ---
Patient: NARAYAN NUÑEZ General Instructions [facility] VisitID: [id number] [place] [address] 76y, F Registration Date/Time: 11/05/2016 Neuropathy associated with diabetes type 2. INSTRUCTIONS Your Current Medications: CHANGE THE FOLLOWING MEDICATIONS TO: Gabapentin Oral : 300 mg 3x a day, 2 tab TID. CONTINUE TAKING THE FOLLOWING MEDICATIONS: AmLODIPine Besylate Oral : 5 mg daily. Aspirin Oral : Tablet Chewable 81 mg. Azithromycin Oral : 250 mg, 5 day course. Lantus Subcutaneous : Solution 100 unit/mL, 20 units 2x a day. Metoclopramide HCl Oral : 10 mg 2x a day, 1/2 tab twice a day. Metoprolol Tartrate Oral : 25 mg BID. Minerin External. Omeprazole Oral : 20 mg daily. Percocet Oral : 5/325 mg 3x a day, takes for Arthritis. Prescription Medications: Demerol 50 mg: take 1 tablet orally every 6 hours as needed for pain. Dispense fifteen (15). Substitution is permissible. Gabapentin 300 mg capsules: take 2 orally every 8 hours. Dispense forty-five (45). No refill. Follow-up: Follow up with your doctor in about two days. Call for an appointment. Blood pressure screening was not performed during this visit because the patient has an active diagnosis of hypertension. ADDITIONAL INFORMATION Peripheral Neuropathy Peripheral Neuropathy is a condition that affects the nerves of the arms or legs. It causes a change in physical feeling. Sometimes it causes weakness in the muscles. You may feel tingling, numbness or shooting pains (especially at night). You may be sensitive to light touch or temperature changes. Neuropathy may be caused by being exposed to certain drugs or chemicals, or because of a vitamin deficiency. It can be a complication of a chronic disease such as diabetes or alcoholism. A ruptured disk with pressure on the spinal nerve may also cause this condition. Home Care: 1) You may take acetaminophen (Tylenol) or ibuprofen (Advil, Motrin) for pain, unless another pain medicine has been prescribed. 2) If the neuropathy affects your feet, keep your toenails trimmed and wash your feet often. Wear shoes that fit well. Doing so avoids pressure points, blisters and ulcers. Due to a loss of feeling, you may not notice injuries, so look at your feet carefully (including the soles of your feet and between your toes) at least once a week. Tell your doctor if you have any open wounds or signs of infection. 3) If vitamins have been prescribed, be sure to remind yourself to take them daily. Follow Up with your doctor or as advised by our staff. You may need further testing to find out the exact cause of your neuropathy. Get Prompt Medical Attention if any of the following occur: -- Redness, swelling or pus coming from the toes or feet -- Loss of bowel or bladder control (if this is a new symptom for you) -- Muscle weakness (if this is a new symptom for you) Drug Abuse: Prescribed Narcotics& Sedatives Prolonged or overuse of drugs prescribed for pain or sedation may lead to addictionor dependence. Physical dependence leads to drug withdrawal symptoms if you stop taking the drug. With psychological dependence you feel a strong craving for the drug. You may be unable to stop using the drug even though you want to stop. These problems can occur even when the medication is taken at the prescribed dose. Drug addiction places you, your family, and your job at risk. Arrest, conviction and fci sentencing are possible. There is increased danger of accidental injuries to yourself or others while you are under the influence of the drug. from an unintentional overdose of the drug is one of the greatest risks you face. Get Care Admit you have a drug problem to yourself and your family and close friends. Tell your prescribing doctors about this problem so they can help you by adjusting the type and amount of medications that are prescribed in the future. It is best to receive all prescriptions for addictive medications from a single physician who can monitor what is being prescribed. Ask your doctor for a referral for professional help. This could be individual psychotherapy or counseling or a drug treatment program (outpatient or residential). Join a self-help group for drug abuse. Avoid friends who abuse drugs themselves or tempt you to continue abusing drugs. Do not combine pain medicines and sedatives together or with alcohol. Doing so can cause oversedation, coma, and stop your breathing. Follow Up with your doctor or as advised by our staff. Contact one of the resources below for help. National [place] on Alcoholism and Drug Dependencewww.ncadd.org Narcotics Anonymouswww.na.org National Alcohol and Substance Abuse Information Center (for referral to treatment programs) 929.959.9046 www.addictioncareoptions.com Get Prompt Medical Attention if any of the following occur: Excess drowsiness Slow breathing (under 8 breaths per minute) Agitation, anxiety, unable to sleep Unintended weight loss Seizure Chest pain or shortness of breath Fever of 100.4F (38C) or higher, or as directed by your healthcare provider Cough with colored sputum Gabapentin Oral tablet What is this medicine? GABAPENTIN (GA ba pen tin) is used to control partial seizures in adults with epilepsy. It is also used to treat certain types of nerve pain. How should I use this medicine? Take this medicine by mouth. Swallow it with a drink of water. Follow the directions on the prescription label. If this medicine upsets your stomach, take it with food or milk. Take your medicine at regular intervals. Do not take it more often than directed. If you are directed to break the 600 or 800 mg tablets in half as part of your dose, the extra half tablet should be used for the next dose. If you have not used the extra half tablet within 3 days, it should be thrown away. A special MedGuide will be given to you by the pharmacist with each prescription and refill. Be sure to read this information carefully each time. Talk to your oxygen tank filler regarding the use of this medicine in children. Special care may be needed. What side effects may I notice from receiving this medicine? Side effects that you should report to your doctor or health pet caregiver as soon as possible: allergic reactions like skin rash, itching or hives, swelling of the face, lips, or tongue worsening of mood, thoughts or actions of suicide or dying Side effects that usually do not require medical attention (report to your doctor or health pet caregiver if they continue or are bothersome): constipation difficulty walking or controlling muscle movements dizziness nausea slurred speech tiredness tremors weight gain What may interact with this medicine? Do not take this medicine with any of the following medications: other gabapentin products This medicine may also interact with the following medications: alcohol antacids antihistamines for allergy, cough and cold certain medicines for anxiety or sleep certain medicines for depression or psychotic disturbances homatropine; hydrocodone naproxen narcotic medicines (opiates) for pain phenothiazines like chlorpromazine, mesoridazine, prochlorperazine, thioridazine What if I miss a dose? If you miss a dose, take it as soon as you can. If it is almost time for your next dose, take only that dose. Do not take double or extra doses. Where should I keep my medicine? Keep out of reach of children. Store at room temperature between 15 and 30 degrees C (59 and 86 degrees F). Throw away any unused medicine after the expiration date. What should I tell my health care provider before I take this medicine? They need to know if you have any of these conditions: kidney disease suicidal thoughts, plans, or attempt; a previous suicide attempt by you or a family member an unusual or allergic reaction to gabapentin, other medicines, foods, dyes, or preservatives or trying to get breast-feeding What should I watch for while using this medicine? Visit your doctor or health pet caregiver for regular checks on your progress. You may want to keep a record at home of how you feel your condition is responding to treatment. You may want to share this information with your doctor or health pet caregiver at each visit. You should contact your doctor or health pet caregiver if your seizures get worse or if you have any new types of seizures. Do not stop taking this medicine or any of your seizure medicines unless instructed by your doctor or health pet caregiver. Stopping your medicine suddenly can increase your seizures or their severity. Wear a medical identification bracelet or chain if you are taking this medicine for seizures, and carry a card that lists all your medications. You may get drowsy, dizzy, or have blurred vision. Do not drive, use machinery, or do anything that needs mental alertness until you know how this medicine affects you. To reduce dizzy or fainting spells, do not sit or stand up quickly, especially if you are an older patient. Alcohol can increase drowsiness and dizziness. Avoid alcoholic drinks. Your mouth may get dry. Chewing sugarless gum or sucking hard candy, and drinking plenty of water will help. The use of this medicine may increase the chance of suicidal thoughts or actions. Pay special attention to how you are responding while on this medicine. Any worsening of mood, or thoughts of suicide or dying should be reported to your health pet caregiver right away. Women who become while using this medicine may enroll in the [place] Antiepileptic Drug Registry by calling . This registry collects information about the safety of antiepileptic drug use during . You have been given the following additional information: Neuropathy, Peripheral Drug Abuse: Prescribed Narcotics And Sedatives Gabapentin Oral tablet (Electronically signed by Jabari Lala Dr. 11/05/2016 11:10)
--- NOTE | 2016-11-05 11:10 | ED MAR SUMMARY ---
..... Medication Administration Record [facility] [address] [place] [address] Patient: NARAYAN NUÑEZ Visit ID: [id number] 76y, F Weight: 61.2 kg Height/Length: 60.7 in BMI: 25.8 ALLERGIES: Hydrocodone, Ibuprofen, NSAIDs, Penicillin Given 09:58 11/05/2016 Mandy Navarrete RVickiNVicki Medication Administered: DEMEROL [IM] (MEPERIDINE HCL), Dose: 50 mg IM. Medication Ordered: Demerol IM 50 mg (HIGH ALERT MEDICATION, NOW).
--- NOTE | 2016-11-05 11:10 | ED DISCHARGE INSTRUCTIONS ---
Patient: NARAYAN NUÑEZ General Instructions [facility] VisitID: [id number] [place] [address] 76y, F Registration Date/Time: 11/05/2016 Neuropathy associated with diabetes type 2. INSTRUCTIONS Your Current Medications: CHANGE THE FOLLOWING MEDICATIONS TO: Gabapentin Oral : 300 mg 3x a day, 2 tab TID. CONTINUE TAKING THE FOLLOWING MEDICATIONS: AmLODIPine Besylate Oral : 5 mg daily. Aspirin Oral : Tablet Chewable 81 mg. Azithromycin Oral : 250 mg, 5 day course. Lantus Subcutaneous : Solution 100 unit/mL, 20 units 2x a day. Metoclopramide HCl Oral : 10 mg 2x a day, 1/2 tab twice a day. Metoprolol Tartrate Oral : 25 mg BID. Minerin External. Omeprazole Oral : 20 mg daily. Percocet Oral : 5/325 mg 3x a day, takes for Arthritis. Prescription Medications: Demerol 50 mg: take 1 tablet orally every 6 hours as needed for pain. Dispense fifteen (15). Substitution is permissible. Gabapentin 300 mg capsules: take 2 orally every 8 hours. Dispense forty-five (45). No refill. Follow-up: Follow up with your doctor in about two days. Call for an appointment. Blood pressure screening was not performed during this visit because the patient has an active diagnosis of hypertension. ADDITIONAL INFORMATION Peripheral Neuropathy Peripheral Neuropathy is a condition that affects the nerves of the arms or legs. It causes a change in physical feeling. Sometimes it causes weakness in the muscles. You may feel tingling, numbness or shooting pains (especially at night). You may be sensitive to light touch or temperature changes. Neuropathy may be caused by being exposed to certain drugs or chemicals, or because of a vitamin deficiency. It can be a complication of a chronic disease such as diabetes or alcoholism. A ruptured disk with pressure on the spinal nerve may also cause this condition. Home Care: 1) You may take acetaminophen (Tylenol) or ibuprofen (Advil, Motrin) for pain, unless another pain medicine has been prescribed. 2) If the neuropathy affects your feet, keep your toenails trimmed and wash your feet often. Wear shoes that fit well. Doing so avoids pressure points, blisters and ulcers. Due to a loss of feeling, you may not notice injuries, so look at your feet carefully (including the soles of your feet and between your toes) at least once a week. Tell your doctor if you have any open wounds or signs of infection. 3) If vitamins have been prescribed, be sure to remind yourself to take them daily. Follow Up with your doctor or as advised by our staff. You may need further testing to find out the exact cause of your neuropathy. Get Prompt Medical Attention if any of the following occur: -- Redness, swelling or pus coming from the toes or feet -- Loss of bowel or bladder control (if this is a new symptom for you) -- Muscle weakness (if this is a new symptom for you) Drug Abuse: Prescribed Narcotics& Sedatives Prolonged or overuse of drugs prescribed for pain or sedation may lead to addictionor dependence. Physical dependence leads to drug withdrawal symptoms if you stop taking the drug. With psychological dependence you feel a strong craving for the drug. You may be unable to stop using the drug even though you want to stop. These problems can occur even when the medication is taken at the prescribed dose. Drug addiction places you, your family, and your job at risk. Arrest, conviction and mcc sentencing are possible. There is increased danger of accidental injuries to yourself or others while you are under the influence of the drug. from an unintentional overdose of the drug is one of the greatest risks you face. Get Care Admit you have a drug problem to yourself and your family and close friends. Tell your prescribing doctors about this problem so they can help you by adjusting the type and amount of medications that are prescribed in the future. It is best to receive all prescriptions for addictive medications from a single physician who can monitor what is being prescribed. Ask your doctor for a referral for professional help. This could be individual psychotherapy or counseling or a drug treatment program (outpatient or residential). Join a self-help group for drug abuse. Avoid friends who abuse drugs themselves or tempt you to continue abusing drugs. Do not combine pain medicines and sedatives together or with alcohol. Doing so can cause oversedation, coma, and stop your breathing. Follow Up with your doctor or as advised by our staff. Contact one of the resources below for help. National [place] on Alcoholism and Drug Dependencewww.ncadd.org Narcotics Anonymouswww.na.org National Alcohol and Substance Abuse Information Center (for referral to treatment programs) 644.246.7093 www.addictioncareoptions.com Get Prompt Medical Attention if any of the following occur: Excess drowsiness Slow breathing (under 8 breaths per minute) Agitation, anxiety, unable to sleep Unintended weight loss Seizure Chest pain or shortness of breath Fever of 100.4F (38C) or higher, or as directed by your healthcare provider Cough with colored sputum Gabapentin Oral tablet What is this medicine? GABAPENTIN (GA ba pen tin) is used to control partial seizures in adults with epilepsy. It is also used to treat certain types of nerve pain. How should I use this medicine? Take this medicine by mouth. Swallow it with a drink of water. Follow the directions on the prescription label. If this medicine upsets your stomach, take it with food or milk. Take your medicine at regular intervals. Do not take it more often than directed. If you are directed to break the 600 or 800 mg tablets in half as part of your dose, the extra half tablet should be used for the next dose. If you have not used the extra half tablet within 3 days, it should be thrown away. A special MedGuide will be given to you by the pharmacist with each prescription and refill. Be sure to read this information carefully each time. Talk to your grinder machine setter regarding the use of this medicine in children. Special care may be needed. What side effects may I notice from receiving this medicine? Side effects that you should report to your doctor or health child day care center worker as soon as possible: allergic reactions like skin rash, itching or hives, swelling of the face, lips, or tongue worsening of mood, thoughts or actions of suicide or dying Side effects that usually do not require medical attention (report to your doctor or health child day care center worker if they continue or are bothersome): constipation difficulty walking or controlling muscle movements dizziness nausea slurred speech tiredness tremors weight gain What may interact with this medicine? Do not take this medicine with any of the following medications: other gabapentin products This medicine may also interact with the following medications: alcohol antacids antihistamines for allergy, cough and cold certain medicines for anxiety or sleep certain medicines for depression or psychotic disturbances homatropine; hydrocodone naproxen narcotic medicines (opiates) for pain phenothiazines like chlorpromazine, mesoridazine, prochlorperazine, thioridazine What if I miss a dose? If you miss a dose, take it as soon as you can. If it is almost time for your next dose, take only that dose. Do not take double or extra doses. Where should I keep my medicine? Keep out of reach of children. Store at room temperature between 15 and 30 degrees C (59 and 86 degrees F). Throw away any unused medicine after the expiration date. What should I tell my health care provider before I take this medicine? They need to know if you have any of these conditions: kidney disease suicidal thoughts, plans, or attempt; a previous suicide attempt by you or a family member an unusual or allergic reaction to gabapentin, other medicines, foods, dyes, or preservatives or trying to get breast-feeding What should I watch for while using this medicine? Visit your doctor or health child day care center worker for regular checks on your progress. You may want to keep a record at home of how you feel your condition is responding to treatment. You may want to share this information with your doctor or health child day care center worker at each visit. You should contact your doctor or health child day care center worker if your seizures get worse or if you have any new types of seizures. Do not stop taking this medicine or any of your seizure medicines unless instructed by your doctor or health child day care center worker. Stopping your medicine suddenly can increase your seizures or their severity. Wear a medical identification bracelet or chain if you are taking this medicine for seizures, and carry a card that lists all your medications. You may get drowsy, dizzy, or have blurred vision. Do not drive, use machinery, or do anything that needs mental alertness until you know how this medicine affects you. To reduce dizzy or fainting spells, do not sit or stand up quickly, especially if you are an older patient. Alcohol can increase drowsiness and dizziness. Avoid alcoholic drinks. Your mouth may get dry. Chewing sugarless gum or sucking hard candy, and drinking plenty of water will help. The use of this medicine may increase the chance of suicidal thoughts or actions. Pay special attention to how you are responding while on this medicine. Any worsening of mood, or thoughts of suicide or dying should be reported to your health child day care center worker right away. Women who become while using this medicine may enroll in the [place] Antiepileptic Drug Registry by calling . This registry collects information about the safety of antiepileptic drug use during . You have been given the following additional information: Neuropathy, Peripheral Drug Abuse: Prescribed Narcotics And Sedatives Gabapentin Oral tablet (Electronically signed by Jabari Lala Dr. 11/05/2016 11:10)
== END 2016-11-05 10:40 | disposition home or self-care (01) ==
LOC: ED SRH 09:06
DX: E11.40 Type 2 diabetes mellitus with diabetic neuropathy, unspecified (principal); Z88.0 Allergy status to penicillin; X58.XXXA Exposure to other specified factors, initial encounter; Y93.9 Activity, unspecified; Y92.9 Unspecified place or not applicable; Y99.9 Unspecified external cause status; Z79.899 Other long term (current) drug therapy; Z79.4 Long term (current) use of insulin; Z88.5 Allergy status to narcotic agent; Z88.8 Allergy status to other drugs, medicaments and biological substances

== ENCOUNTER 2016-11-09 20:16 | Emergency (ER) | payer OTHER ==
--- NOTE | 2016-11-09 23:01 | DIAGNOSTIC IMAGING REPORT ---
PROCEDURE: XR CHEST 1 VIEW INDICATION: COUGH TECHNIQUE: Single view chest. 2220 hours COMPARISON: 09/26/2016 FINDINGS: Stable cardiomediastinal contour with decreased prominence of the central vessels. Improved bilateral lower lobe aeration with slight residual coarsening of the interstitium in the lower lobes bilaterally. No effusion or pneumothorax. Intact osseous structures with surgical changes of prior right distal clavicular resection. IMPRESSION: 1. Improved central vascular congestion and alveolar edema with residual interstitial thickening suggestive of minor chronic edema. 2. No evidence of acute pneumonia.
--- NOTE | 2016-11-10 00:06 | ED ORDER SUMMARY ---
..... Patient: NARAYAN NUÑEZ OrderSheet [facility] VisitID: [id number] [place] [address] 76y, F Registration Date/Time: 11/09/2016 ORDER SHEET Weight: 61.2 kg (stated) Allergies: Hydrocodone, Ibuprofen, NSAIDs, Penicillin GENERAL ORDERS: UA-Culture if indicated Urgent (21:34 11/09/2016 Earline GUNDERSON) (Ack 21:35 HSoule) (21:44 HSoule) Chest 1V Urgent (22:10 11/09/2016 Earline GUNDERSON) (Ack 22:15 CHategekimana) (22:23 MCampbell) POC Glucose (22:44 11/09/2016 Earline GUNDERSON) (22:50 KPage-Kuchan R.N.) MEDICATION ORDERS: Dilaudid IM 1 mg (HIGH ALERT MEDICATION, NOW) (22:11 11/09/2016 Earline GUNDERSON) (Ack 22:15 KPage-Kuchan R.N.) (22:45 KPage-Kuchan R.N.) Dilaudid IM 1 mg (HIGH ALERT MEDICATION, NOW) (00:00 11/10/2016 Earline GUNDERSON) (0:11 KPage-Kuchan R.N.) IV FLUIDS: ORDER SHEET NOTES: [Electronically signed by Eve Jarquin R.N. (10:11/10/2016)] [Electronically signed by Sarah Fuentes MD (14:25 11/14/2016)] [Electronically locked/signed by Eve Jarquin R.N. (10:11/10/2016)]
--- NOTE | 2016-11-10 00:06 | ED ORDER SUMMARY ---
..... Patient: NARAYAN NUÑEZ OrderSheet [facility] VisitID: [id number] [place] [address] 76y, F Registration Date/Time: 11/09/2016 ORDER SHEET Weight: 61.2 kg (stated) Allergies: Hydrocodone, Ibuprofen, NSAIDs, Penicillin GENERAL ORDERS: UA-Culture if indicated Urgent (21:34 11/09/2016 Earline GUNDERSON) (Ack 21:35 HSoule) (21:44 HSoule) Chest 1V Urgent (22:10 11/09/2016 Earline GUNDERSON) (Ack 22:15 CHategekimana) (22:23 MCampbell) POC Glucose (22:44 11/09/2016 Earline GUNDERSON) (22:50 KPage-Kuchan R.N.) MEDICATION ORDERS: Dilaudid IM 1 mg (HIGH ALERT MEDICATION, NOW) (22:11 11/09/2016 Earline GUNDERSON) (Ack 22:15 KPage-Kuchan R.N.) (22:45 KPage-Kuchan R.N.) Dilaudid IM 1 mg (HIGH ALERT MEDICATION, NOW) (00:00 11/10/2016 Earline GUNDERSON) (0:11 KPage-Kuchan R.N.) IV FLUIDS: ORDER SHEET NOTES: [Electronically signed by Eve Jarquin R.N. (10:11/10/2016)] [Electronically signed by Sarah Fuentes MD (14:25 11/14/2016)] [Electronically locked/signed by Eve Jarquin R.N. (10:11/10/2016)]
--- NOTE | 2016-11-10 00:06 | ED NURSING NOTES ---
Clinical Report - [facility] [address] [place] [address] 11/09/2016 20:15 Patient: NARAYAN NUÑEZ TRIAGE Triage time 20:Nov 09 2016. Chief Complaint: COUGH and (body aches, had flu shot this season). Alert. No acute distress. SEPSIS SCREEN: Sepsis Screen. Negative (no infection suspected/documented). --20:30 Ceci Luciano R.N. 20:21 11/09/16. BP: 144/70 taken on the left arm, while lying. HR: 83. RR: 18. O2 saturation: 99% on room air. Temp: 98.7 F (oral). Pain level now: 9/10. --20:30 Ceci Luciano R.N. Weight: 61.2 kg stated. Height/Length: 60 inches Per Patient. BMI: 26.4. --20:24 Ceci Luciano R.N. Medications AmLODIPine Besylate Oral 5 mg, daily. Aspirin Oral (Tablet Chewable 81 mg). Azithromycin Oral 250 mg (5 day course). Gabapentin Oral 300 mg, 3x a day (1 tab TID). Lantus Subcutaneous (Solution 100 unit/mL) 20 units, 2x a day. Metoclopramide HCl Oral 10 mg, 2x a day (1/2 tab twice a day). Metoprolol Tartrate Oral 25 mg, BID. Minerin External. Omeprazole Oral 20 mg, daily. Percocet Oral 5/325 mg, 3x a day (takes for Arthritis). --20:22 Ceci Luciano R.N. Medication/allergy information source: the patient. --20:30 Ceci Luciano R.N. Allergies Hydrocodone. (GI Intolerance/Abdominal Pain) Ibuprofen. NSAIDs. (GI Intolerance) Penicillin. --20:22 Ceci Luciano R.N. History Arrived by private vehicle. Historian: patient. This started today. She has had chills and fatigue. Reports muscle aches. 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 PAST MEDICAL HX: Immunizations: up-to-date. The patient has had a hysterectomy. SOCIAL HX: Never smoker. No alcohol use or drug use. No infectious disease exposure. ABUSE ASSESSMENT: No report of abuse. SELF HARM ASSESSMENT: A self harm assessment was performed. The patient answered "no" to the question "Are you here because you tried to hurt yourself?". NUTRITIONAL RISK ASSESSMENT: The nutritional risk assessment revealed no deficiencies. FUNCTIONAL ASSESSMENT: Functional assessment: no impairments noted. LEARNING NEEDS ASSESSMENT: The learning needs assessment revealed no barriers. FALL RISK ASSESSMENT: Fall risk assessment completed. Risk factors identified include patient medications and age greater than 65 years. Fall interventions initiated. Call light in reach of patient. Instructed not to get up without assistance. SKIN INTEGRITY ASSESSMENT: Skin integrity risk assessment completed. No skin integrity risk identified. --20:30 Ceci Luciano R.N. PROBLEMS: Neuropathy. Hypoxia. Leukocytosis. Abnormal Liver Function Test. Pneumonia. Congestive Heart Failure. Arthritis. Chronic Back Pain. Diabetes Mellitus. --20:22 Ceci Luciano R.N. ADDITIONAL SURGERIES: Back Surgery. Cholecystectomy. --20:22 Ceci Luciano R.N. Interventions ID and allergy band on patient. --20:30 Ceci Luciano R.N. PHYSICAL ASSESSMENT Ambulatory to room. Patient gowned. GENERAL / NEURO / PSYCH: Alert. Oriented X 4. Appears in no acute distress. HEENT: Pupils equal, round and reactive to light. Voice within normal limits. Mucous membranes are pink. RESPIRATORY: Respirations not labored. CVS: Capillary refill less than 2 seconds. SKIN: Skin is warm and dry. Normal skin turgor. --20:30 Ceci Luciano R.N. NURSING PROGRESS NOTES Pulse oximeter and NIBP monitor placed on patient; monitor alarms on. Patient gowned. Head of bed elevated. Reassurance given. Patient identifiers checked. Call light placed in reach. Side rails up. Bed placed in lowest position. Brakes of bed on. Patient ready for evaluation- chart flagged. Patient waiting for evaluation. --20:31 Ceci Luciano R.N. Patient ID band checked for patient name and birthdate: patient confirmed. Instructions provided to collect clean catch urine and patient verbalized understanding. Clean catch urine collected with return of yellow-colored clear urine; sample sent to lab for urinalysis and culture. Specimen labeled in the presence of the patient. --20:58 Martha Franks 22:19 11/09/2016 Dilaudid (HYDROmorphone HCl PF) IM 1 mg given. Given in the right gluteus ann. Allergies verified, confirmed 5 rights and sedative warning given. --22:45 Ceci Luciano R.N. Point of care testing: performed by nurse. Glucose: 157. Result shown to the ED physician. Patient identifiers checked. Call light placed in reach. Side rails up. Bed placed in lowest position. Brakes of bed on. --22:51 Ceci Luciano R.N. 00:11 11/10/2016 Dilaudid (HYDROmorphone HCl PF) IM 1 mg given. Given in the left gluteus ann. Allergies verified, confirmed 5 rights and sedative warning given to the patient. --00:11 Ceci Luciano R.N. ( preparing pt for dispo). --00:13 Ceci Luciano R.N. 00:11 11/10/16. BP: 146/80. HR: 85. RR: 17. O2 saturation: 99%. Pain level now: 12/26. --00:13 Ceci Luciano R.N. DISPOSITION / DISCHARGE Departure time: 0017. No learning barriers present. Discharge instructions provided and reviewed with the patient. Reviewed medication(s) side effects and course information. Patient verbalized understanding. Written instructions provided in Urdu. The patient was discharged by the physician. She was discharged home and accompanied by family. She left the Emergency Department ambulatory and via private vehicle. Family member driving. --00:21 Ceci Luciano R.N. 00:18 11/10/16. BP: 138/71. HR: 79. RR: 18. O2 saturation: 99%. Temp: 97.4 F. Pain level now: 11/26. --00:21 Ceci Luciano R.N. Locked/Released at 11/10/2016 10:01 by Eve Jarquin R.N.
--- NOTE | 2016-11-10 00:06 | ED CLINICAL REPORT ---
Clinical Report - Physicians/Mid Levels [facility] [address] [place] [address] 11/09/2016 20:15 Patient: NARAYAN NUÑEZ Time Seen: 21:26. Arrived- By private vehicle. Historian- patient. HISTORY OF PRESENT ILLNESS Chief Complaint: COUGH. This started about 3 days ago and is still present. The illness is described as moderate. The patient has had a cough, a sore throat, nasal congestion, muscle aches and a nasal discharge. No sputum production, difficulty breathing, chest discomfort or pain or fever. No chills, hoarseness, sinus pressure, sinus drainage or ear pain. (Pt also states her neuropathy pain is really "acting up" in her feet.). Additional history - No known contact with a sick individual. Similar symptoms previously: Recent medical care: ( PT did have pneumonia a few months ago, and was admitted twice for this. Sx have improved since the second hospitalization.). Not recently seen/assessed. REVIEW OF SYSTEMS No headache, eye discomfort, nausea, vomiting or diarrhea. No abdominal pain, hay fever, pedal edema, calf pain or difficulty with urination. No skin rash, enlarged lymph nodes or joint pain. All systems otherwise negative, except as recorded above. PAST HISTORY Problems: Neuropathy. Leukocytosis. Congestive Heart Failure. Arthritis. Chronic Back Pain. Diabetes Mellitus. Additional Surgeries: Back Surgery. Cholecystectomy. Medications: AmLODIPine Besylate Oral 5 mg, daily. Aspirin Oral (Tablet Chewable 81 mg). Azithromycin Oral 250 mg (5 day course). Gabapentin Oral 300 mg, 3x a day (1 tab TID). Lantus Subcutaneous (Solution 100 unit/mL) 20 units, 2x a day. Metoclopramide HCl Oral 10 mg, 2x a day (1/2 tab twice a day). Metoprolol Tartrate Oral 25 mg, BID. Minerin External. Omeprazole Oral 20 mg, daily. Percocet Oral 5/325 mg, 3x a day (takes for Arthritis). Allergies: Hydrocodone. (GI Intolerance/Abdominal Pain) Ibuprofen. NSAIDs. (GI Intolerance) Penicillin. SOCIAL HISTORY Never smoker. No alcohol use or drug use. ADDITIONAL NOTES The nursing notes have been reviewed. PHYSICAL EXAM Vital Signs: 11/09/2016 20:21 BP: 144/70. HR: 83. RR: 18. O2 saturation: 99%. Temp: 98.7 F. Pain level now: 02/26. Have been reviewed. Appearance: Alert. No acute distress. Eyes: Pupils equal, round and reactive to light. Eyes normal inspection. ENT: Nose normal. Neck: Normal inspection. CVS: Normal heart rate and rhythm. Heart sounds normal. Pulses normal. Respiratory: No respiratory distress. Breath sounds normal. Abdomen: Soft and nontender. Back: Normal inspection. No CVA tenderness. Skin: Skin warm and dry. Normal skin color. No rash. Normal skin turgor. Extremities: Extremities exhibit normal ROM. No lower extremity edema. Neuro: (Grossly intact. Pt has sensation in both feet, and is globally tender on foot exam bilaterally.). LABS, X-RAYS, AND EKG Chest X-ray: No acute disease. Normal lung markings present. Normal heart size. Mediastinum normal. Great vessels normal. Soft tissues normal. No infiltrate. No fracture. No bony lesion present. Views: AP (portable). Technique: good. The X-rays were independently viewed by me and interpreted contemporaneously by me. A comparison with prior films reveals that the findings are improved. Laboratory Tests: UA-Culture if indicated: (EVARISTO: 11/09/2016 20:50) ( [id number] 11/09/2016 21:54) Final results Test Result Flag Units (Reference) URINE COLOR YELLOW URINE APPEARANCE CLEAR URINE GLUCOSE 1+ (NEGATIVE) URINE BILIRUBIN NEGATIVE (NEGATIVE) URINE KETONE NEGATIVE (NEGATIVE) URINE SPECIFIC GRAVITY 1.010 (1.010-1.030) URINE PH 6.5 (5.0-8.0) URINE PROTEIN NEGATIVE (NEGATIVE) URINE UROBILINOGEN 0.2 EU/dL (0.2-1.0) URINE NITRITE NEGATIVE (NEGATIVE) URINE BLOOD NEGATIVE (NEGATIVE) URINE LEUK ESTERASE NEGATIVE (NEGATIVE) URINE RBC NONE SEEN rbc/hpf (0-1) URINE WBC RARE wbc/hpf (0-1) URINE EPITHELIAL CELLS 0-1 EPI/hpf (0-5) URINE BACTERIA NONE SEEN (NONE SEEN) URINE COMMENT CULT NOT INDICATED URINE CULTURES ARE SET-UP BASED ON THE FOLLOWING CRITERIA:POSITIVE NITRITEPOSITIVE LEUKOCYTE ESTERASEGREATER THAN 10 WHITE BLOOD CELLSMODERATE (2+) OR GREATER BACTERIA . Pulse Oximetry: 11/09/2016 20:21 O2 saturation: 99%. (FIO2 - room air). Interpretation: normal. PROGRESS AND PROCEDURES Course of Care: Pt was given Dilaudid for her neuropathy, and worked up with a UA and CXR, both of which were negative. Her POC glucose was 157. Pt was found to be feeling better. No emergent condition was identified. Patient and family counseled in person regarding the patient's stable condition, test results, diagnosis and need for follow-up. Concerns were addressed. Old medical records reviewed. Disposition: Discharged. Condition: stable and improved. CLINICAL IMPRESSION Acute viral bronchitis. INSTRUCTIONS Drink plenty of fluids. Warnings: GENERAL WARNINGS: Return or contact your physician immediately if your condition worsens or changes unexpectedly, if not improving as expected, or if other problems arise. Your Current Medications: CONTINUE TAKING THE FOLLOWING MEDICATIONS: AmLODIPine Besylate Oral : 5 mg daily. Aspirin Oral : Tablet Chewable 81 mg. Azithromycin Oral : 250 mg, 5 day course. Gabapentin Oral : 300 mg 3x a day, 1 tab TID. Lantus Subcutaneous : Solution 100 unit/mL, 20 units 2x a day. Metoclopramide HCl Oral : 10 mg 2x a day, 1/2 tab twice a day. Metoprolol Tartrate Oral : 25 mg BID. Minerin External. Omeprazole Oral : 20 mg daily. Percocet Oral : 5/325 mg 3x a day, takes for Arthritis. Prescription Medications: Percocet 5 mg/325 mg: take 1-2 tablets orally every 6 hours as needed for pain. Dispense ten (10). No refill. Substitution is permissible. Gabapentin 300 mg capsules: take 1 orally every 12 hours. Dispense thirty (30). No refill. Follow-up: Follow up with your doctor. Call for the next available appointment. Understanding of the discharge instructions verbalized by patient and family. (Electronically signed by Sarah Fuentes MD 11/14/2016 14:25)
--- NOTE | 2016-11-14 14:26 | ED MAR SUMMARY ---
..... Medication Administration Record [facility] [address] [place] [address] Patient: NARAYAN NUÑEZ Visit ID: [id number] 76y, F Weight: 61.2 kg Height/Length: 60 in BMI: 26.4 ALLERGIES: Hydrocodone, Ibuprofen, NSAIDs, Penicillin Given 22:19 11/09/2016 Ceci Luciano R.N. Medication Administered: DILAUDID [IM] (HYDROMORPHONE HCL PF), Dose: 1 mg IM. Medication Ordered: Dilaudid IM 1 mg (HIGH ALERT MEDICATION, NOW). Given 00:11 11/10/2016 Ceci Luciano R.N. Medication Administered: DILAUDID [IM] (HYDROMORPHONE HCL PF), Dose: 1 mg IM. Medication Ordered: Dilaudid IM 1 mg (HIGH ALERT MEDICATION, NOW).
--- NOTE | 2016-11-14 14:26 | ED DISCHARGE INSTRUCTIONS ---
Patient: NARAYAN NUÑEZ General Instructions [facility] VisitID: [id number] [place] [address] 76y, F Registration Date/Time: 11/09/2016 Acute viral bronchitis. INSTRUCTIONS Drink plenty of fluids. Warnings: GENERAL WARNINGS: Return or contact your physician immediately if your condition worsens or changes unexpectedly, if not improving as expected, or if other problems arise. Your Current Medications: CONTINUE TAKING THE FOLLOWING MEDICATIONS: AmLODIPine Besylate Oral : 5 mg daily. Aspirin Oral : Tablet Chewable 81 mg. Azithromycin Oral : 250 mg, 5 day course. Gabapentin Oral : 300 mg 3x a day, 1 tab TID. Lantus Subcutaneous : Solution 100 unit/mL, 20 units 2x a day. Metoclopramide HCl Oral : 10 mg 2x a day, 1/2 tab twice a day. Metoprolol Tartrate Oral : 25 mg BID. Minerin External. Omeprazole Oral : 20 mg daily. Percocet Oral : 5/325 mg 3x a day, takes for Arthritis. Prescription Medications: Percocet 5 mg/325 mg: take 1-2 tablets orally every 6 hours as needed for pain. Dispense ten (10). No refill. Substitution is permissible. Gabapentin 300 mg capsules: take 1 orally every 12 hours. Dispense thirty (30). No refill. Follow-up: Follow up with your doctor. Call for the next available appointment. Understanding of the discharge instructions verbalized by patient and family. ADDITIONAL INFORMATION Bronchitis, Viral (Adult: No Abx) You have a viral bronchitis. This illness is contagious during the first few days and is spread through the air by coughing and sneezing, or by direct contact (touching the sick person and then touching your own eyes, nose, or mouth). Most viral illnesses resolve within 10-14 days with rest and simple home remedies, although they may sometimes last for several weeks. Antibiotics will not kill a virus and are generally not prescribed for this condition. Home Care: If symptoms are severe, rest at home for the first 2-3 days. When resuming activity, don't let yourself become overly tired. Do not smoke and avoid the smoke of others. You may use acetaminophen (Tylenol) or ibuprofen (Motrin, Advil) to control fever or pain, unless another pain medicine was prescribed. [NOTE: If you have chronic liver or kidney disease or ever had a stomach ulcer or GI bleeding, talk with your doctor before using these medicines.] (Aspirin should never be used in anyone under 18 years of age who is ill with a fever. It may cause severe liver damage.) Your appetite may be poor so a light diet is fine. Avoid dehydration by drinking 6-8 glasses of fluids per day (water, sport drinks such as Gatorade, juices, tea, soup, etc.). Extra fluids will help loosen secretions in the nose and lung. [id number] cold medicines will not shorten the length of the illness, but may be helpful for cough (Robitussin DM), sore throat (Chloraseptic lozenges or spray), nasal and sinus congestion (Actifed or Sudafed). [NOTE: Do not use decongestants if you have high blood pressure.] Follow Up with your doctor or as directed by our staff if you are not improving over the next week. NOTE: If you are age 65 or older, or if you have chronic asthma or COPD, we recommend a PNEUMOCOCCAL VACCINATION every five years and a yearly INFLUENZAVACCINATION (FLU-SHOT) every . Ask your doctor about this. If you had an X-ray, a radiologist will review it. You will be notified of any new findings that may affect your care.] Get Prompt Medical Attention if any of the following occur: Fever over 100.4F (38.0C) for more than three days Trouble breathing, wheezing or pain with breathing Coughing up blood or increased amounts of colored sputum Weakness, drowsiness, headache, facial pain, ear pain or a stiff neck You have been given the following additional information: Bronchitis, No Antibiotic (Adult) (Electronically signed by Sarah Fuentes MD 11/14/2016 14:25)
--- NOTE | 2016-11-14 14:26 | ED MED RECONCILIATION SUMMARY ---
Patient: NARAYAN NUÑEZ Medication Reconciliation Report [facility] VisitID: [id number] [place] [address] 76y, F Registration Date/Time: 11/09/2016 Weight: 61.2 kg Height/Length: 60 in. BMI: 26.4 ALLERGIES: Hydrocodone, Ibuprofen, NSAIDs, Penicillin The patient's Home Medications are listed below: CONTINUE TAKING THE FOLLOWING MEDICATIONS: AmLODIPine Besylate Oral 5 mg, daily Aspirin Oral (81 mg) Azithromycin Oral 250 mg, 5 day course Gabapentin Oral 300 mg, 3x a day, 1 tab TID Lantus Subcutaneous (100 unit/mL) 20 units, 2x a day Metoclopramide HCl Oral 10 mg, 2x a day, 1/2 tab twice a day Metoprolol Tartrate Oral 25 mg, BID Minerin External Omeprazole Oral 20 mg, daily Percocet Oral 5/325 mg, 3x a day, takes for Arthritis The source(s) of the original Home Medication information: patient The following Medications were given to the patient in the Emergency Department: Dilaudid [IM] IM 1 mg, administered: 11/09/2016 10:19:00 PM Dilaudid [IM] IM 1 mg, administered: 11/10/2016 12:11:00 AM The following Medications were prescribed to the patient: Percocet 5 mg/325 mg: take 1-2 tablets orally every 6 hours as needed for pain. Dispense ten (10). No refill. Substitution is permissible. -- Sarah Fuentes MD Gabapentin 300 mg capsules: take 1 orally every 12 hours. Dispense thirty (30). No refill. -- Sarah Fuentes MD
--- NOTE | 2016-11-14 14:26 | ED MED RECONCILIATION SUMMARY ---
Patient: NARAYAN NUÑEZ Medication Reconciliation Report [facility] VisitID: [id number] [place] [address] 76y, F Registration Date/Time: 11/09/2016 Weight: 61.2 kg Height/Length: 60 in. BMI: 26.4 ALLERGIES: Hydrocodone, Ibuprofen, NSAIDs, Penicillin The patient's Home Medications are listed below: CONTINUE TAKING THE FOLLOWING MEDICATIONS: AmLODIPine Besylate Oral 5 mg, daily Aspirin Oral (81 mg) Azithromycin Oral 250 mg, 5 day course Gabapentin Oral 300 mg, 3x a day, 1 tab TID Lantus Subcutaneous (100 unit/mL) 20 units, 2x a day Metoclopramide HCl Oral 10 mg, 2x a day, 1/2 tab twice a day Metoprolol Tartrate Oral 25 mg, BID Minerin External Omeprazole Oral 20 mg, daily Percocet Oral 5/325 mg, 3x a day, takes for Arthritis The source(s) of the original Home Medication information: patient The following Medications were given to the patient in the Emergency Department: Dilaudid [IM] IM 1 mg, administered: 11/09/2016 10:19:00 PM Dilaudid [IM] IM 1 mg, administered: 11/10/2016 12:11:00 AM The following Medications were prescribed to the patient: Percocet 5 mg/325 mg: take 1-2 tablets orally every 6 hours as needed for pain. Dispense ten (10). No refill. Substitution is permissible. -- Sarah Fuentes MD Gabapentin 300 mg capsules: take 1 orally every 12 hours. Dispense thirty (30). No refill. -- Sarah Fuentes MD
--- NOTE | 2016-11-14 14:26 | ED MAR SUMMARY ---
..... Medication Administration Record [facility] [address] [place] [address] Patient: NARAYAN NUÑEZ Visit ID: [id number] 76y, F Weight: 61.2 kg Height/Length: 60 in BMI: 26.4 ALLERGIES: Hydrocodone, Ibuprofen, NSAIDs, Penicillin Given 22:19 11/09/2016 Ceci Luciano R.N. Medication Administered: DILAUDID [IM] (HYDROMORPHONE HCL PF), Dose: 1 mg IM. Medication Ordered: Dilaudid IM 1 mg (HIGH ALERT MEDICATION, NOW). Given 00:11 11/10/2016 Ceci Luciano R.N. Medication Administered: DILAUDID [IM] (HYDROMORPHONE HCL PF), Dose: 1 mg IM. Medication Ordered: Dilaudid IM 1 mg (HIGH ALERT MEDICATION, NOW).
== END 2016-11-10 00:17 | disposition home or self-care (01) ==
LOC: ED SRH 20:16
DX: J20.8 Acute bronchitis due to other specified organisms (principal); I50.9 Heart failure, unspecified; E11.9 Type 2 diabetes mellitus without complications; Z79.891 Long term (current) use of opiate analgesic; Z79.82 Long term (current) use of aspirin; Z79.4 Long term (current) use of insulin; Z79.899 Other long term (current) drug therapy; Z88.5 Allergy status to narcotic agent; Z88.6 Allergy status to analgesic agent; Z88.0 Allergy status to penicillin
CPT/HCPCS: 90004; 90098